=== PATIENT | female | born 1995 | race Two or more races ===

== ENCOUNTER 2024-11-15 16:44 | Emergency (ER) | payer MEDICAID, SELFPAY ==
[2024-11-15 17:04] VITALS: BP 128/82; PULSE 77; RESP 18; TEMP 37.2; O2SAT 99; BMI 38.2
--- NOTE | 2024-11-15 17:09 | PD.EDRME ---
Rapid Medical Screening Exam E Arrival date/time: 11/15/24 16:44 29-year-old female with no known medical history presents to the emergency room with a chief complaint of left pelvic pain x 1 day. Patient is a . She is currently 15 weeks I have greeted and performed a focused initial assessment of this patient. A comprehensive ED assessment and evaluation of the patient, analysis of all test results, and completion of the medical decision making process will be conducted by additional ED providers. Chief Complaint: Abdominal Pain Vital signs: Vital Signs Temperature 99 F 11/15/24 17:04 Pulse Rate 77 11/15/24 17:04 Respiratory Rate 18 11/15/24 17:04 Blood Pressure 128/82 11/15/24 17:04 Pulse Oximetry (%) 99 11/15/24 17:04 Oxygen Delivery Method Room Air 11/15/24 17:04 Vital signs reviewed by provider: Yes
--- NOTE | 2024-11-15 17:10 | XR_ITS ---
Examination: Complete OB ultrasound greater than 14 weeks Date and time of exam: November 15, 2024 at 1758 hrs. Indications: History of mass in the placenta, onset pelvic pain today Findings: Viable intrauterine single fetus with single amniotic sac presentation variable Cardiac motion 155 BPM Placenta posterior mass in the placenta 7.8 x 6.3 x 8.2 cm placenta grade 2 Umbilical cord insertion seen Amniotic fluid index 4.1 cm Cervix 4.6 cm Ovaries obscured by bowel gas. Composite estimated gestational age based on BPD, head circumference, abdominal circumference, femur length is 15 weeks 5 days Estimated weight 121.9 g. Survey of intracranial anatomy, spinal anatomy, abdominal anatomy, four-chamber heart performed with no abnormalities identified. Impression: Viable intrauterine gestation 15 weeks 5 days Large mass in the placenta, 7.8 x 6.3 x 8.2 cm unclear etiology Recommend short-term follow-up.
[2024-11-15 18:00] LABS: Basophils % (Auto) 0 % (0-2.5); Eosinophils # (Auto) 0.1 Thou/mm3 (0.0-0.5); Eosinophils % (Auto) 2 % (0-10); Hematocrit 31.5 % (36.0-46.0); Immature Granulocytes % (Auto) 0 % (0-0); Immature Granulocytes Auto 0.02 Thou/mm3 (0.00-0.00); Lymphocytes # (Auto) 2.1 Thou/mm3 (1.0-4.8); Lymphocytes % (Auto) 31 % (10-50); Mean Corpuscular HGB Conc 34.9 g/dl (31.0-37.0); Mean Corpuscular Hemoglobin 29.2 pg (25.0-35.0); Mean Corpuscular Volume 84 fL (80-100); Monocytes # (Auto) 0.4 Thou/mm3 (0.0-0.8); Monocytes % (Auto) 6 % (0-12); Neutrophils # (Auto) 4.1 Thou/mm3 (1.8-7.7); Neutrophils % (Auto) 61 % (37-80); Nucleated Red Blood Cell % 0 /100 WBC (0); Platelet Count 273 Thou/mm3 (140-440); RDW Standard Deviation 39.3 fL (36.4-46.3); Red Blood Count 3.77 Miln/mm3 (4.00-5.20); White Blood Count 6.8 Thou/mm3 (3.6-11.0)
[2024-11-15 18:27] LABS: Alanine Aminotransferase 17 U/L (10-49); Albumin, Serum 4.5 gm/dL (3.5-5.0); Albumin/Globulin Ratio 1.9 (1.2-2.2); Alkaline Phosphatase 75 U/L (46-116); Anion Gap 11 (7-16); Aspartate Amino Transferase 13 U/L (0-34); BUN/Creatinine Ratio 8 Ratio (12-20); Bilirubin,Total 0.3 mg/dL (0.3-1.2); Blood Urea Nitrogen 5 mg/dL (9-23); Calcium 9.5 mg/dL (8.3-10.6); Calcium (Corrected) 9.5 mg/dL (8.5-10.1); Carbon Dioxide 22.3 mMol/L (20.0-31.0); Chloride 104 mMol/L (98-107); Creatinine (Component) 0.6 mg/dL (0.6-1.3); Estimated Creatinine Clearance 168.5 mL/min (>60); Globulin 2.4 gm/dL (2.3-3.5); Glucose 86 mg/dL (74-106); Osmolality,Calculated 270 (275-295); Potassium 3.7 mMol/L (3.4-5.1); Sodium 137 mMol/L (136-145); Total Protein 6.9 gm/dL (5.7-8.2); eGFR > 60 See Note
[2024-11-15 19:20] LABS: Beta HCG,Quantitative 24841 mIU/mL (<5.0)
[2024-11-15 19:24] LABS: Collection Type, Urine Clean Catch
[2024-11-15 19:35] VITALS: BP 122/79; PULSE 73; RESP 18; O2SAT 100
[2024-11-15 19:56] LABS: Bacteria,Urine Rare; Bilirubin,Urine Negative (Negative); Blood,Urine Negative (Negative); Clarity,Urine Clear (Clear/Hazy); Color,Urine Lt-Yellow (Lt Yel-Yel); Glucose, Urine Negative (Negative); Ketones,Urine 2+ (Negative); Leukocyte Esterase,Urine Negative (Negative); Nitrite,Urine Negative (Negative); Protein,Urine Negative (Neg - Trace); RBC,Urine 2 /hpf (0-3); Squamous Epithelial Cell,Urine 2 /hpf (0-5); Urobilinogen,Urine Negative mg/dL (0.0-1.0); WBC,Urine 1 /hpf (0-5)
[2024-11-15 20:33] VITALS: BP 132/77; PULSE 81; RESP 17; TEMP 36.8; O2SAT 100
--- NOTE | 2024-11-15 20:42 | PD.EDABDPN ---
ED Abdominal Pain RME/HPI General Chief Complaint: Abdominal Pain Stated complaint: 15 weeks OB, abdominal pain Time seen by provider: 11/15/24 20:32 Arrival date/time: 11/15/24 16:44 This is a 29-year-old female here with complaints of lower abdominal pain. She does report she is approximately 15 weeks of gestation. No complaints of cramps, no vaginal bleeding. She does report she has a history of a mass on her placenta. She does state that she had an ultrasound at her doctor's office explaining that she had a mass. Patient is worried and requesting a repeat ultrasound. Denies dysuria, hematuria. Source: patient Limitations: no limitations RME / HPI RME / HPI narrative: 11/15/24 16:44 29-year-old female with no known medical history presents to the emergency room with a chief complaint of left pelvic pain x 1 day. Patient is a . She is currently 15 weeks I have greeted and performed a focused initial assessment of this patient. A comprehensive ED assessment and evaluation of the patient, analysis of all test results, and completion of the medical decision making process will be conducted by additional ED providers. Related Data Allergies Allergy/AdvReac Type Severity Reaction Status Date / Time No Known Allergies Allergy Verified 11/15/24 16:49 Review of Systems Review of Systems Systems Reviewed: All systems reviewed, normal except as documented Narrative Review of Systems: Gen: No fever, no chills, no weight loss EYES: No discharge, no visual changes, no pain HEENT: No ear pain, no congestion, no sore throat PULM: No shortness of breath, no cough, no congestion CV: No chest pain, no dyspnea on exertion, no palpitations GI: No nausea, no vomiting, no diarrhea, no pain, no constipation : No frequency, no urgency, no dysuria Musc/skel: No joint pain, no back pain Skin: No rash Psyc: No hallucinations, no depression Heme/Lymph: No easy bleeding or bruising tendencies Neuro: No weakness, no headache ED Exam General Limitations: Present no limitations General appearance: Present alert and in no apparent distress Head Head exam: Present atraumatic Eye Eye exam: Present normal appearance, PERRL and EOMI ENT ENT exam: Present normal exam, normal oropharynx and mucous membranes moist Neck Neck exam: Present normal inspection, full ROM and trachea midline Chest Chest inspection: Present normal inspection and symmetric chest wall rise Respiratory Respiratory exam: Present normal lung sounds bilaterally Cardiovascular Cardiovascular exam: Present regular rate, normal rhythm and normal heart sounds Abdominal Exam Abdominal exam: Present soft and normal bowel sounds Extremities Exam Extremities exam: Present normal inspection and full ROM Back Exam Back exam: Present normal inspection and full ROM Neurological Exam Neurological exam: Present alert, oriented X3 and CN II-XII intact Psychiatric Psychiatric exam: Present normal affect and normal mood Skin Skin exam: Present warm, dry, intact and normal color Course Quality Measures none Orders Category Date Time Status US OB >= 14 weeks Fetus Stat Exams 11/15/24 17:10 Completed ABO/RH Type Stat Lab 11/15/24 17:22 Completed Beta HCG,Quantitative Stat Lab 11/15/24 17:22 Completed CBC Stat Lab 11/15/24 17:22 Completed CMP [Comprehensive Metabolic Panel] Stat Lab 11/15/24 17:22 Completed UA [Urinalysis] Stat Lab 11/15/24 19:09 Completed Acetaminophen Tab [Tylenol ES Tab] Med 11/15/24 20:48 Discontinued 1,000 mg PO X1 ONE Vital Signs Vital signs: Vital Signs Temperature 99 F 11/15/24 17:04 Pulse Rate 77 11/15/24 17:04 Respiratory Rate 18 11/15/24 17:04 Blood Pressure 128/82 11/15/24 17:04 Pulse Oximetry (%) 99 11/15/24 17:04 Oxygen Delivery Method Room Air 11/15/24 17:04 Abdominal Pain MDM MDM Narrative MDM Narrative:: Strictly advised patient to follow-up with her [employer] [facility]. Patient is aware she has a mass in her uterus. A copy of her ultrasound was handed to the patient. Strict ER precautions given. Patient data External records reviewed:: [facility] previous records Clinical information provided by:: patient Social determinants that could affect healthcare access:: none Patient has the following chronic illnesses:: No How is presenting disease/condition affected by chronic disease/condition?: no chronic disease Evaluation data The following diagnostics were reviewed and interpreted by me:: lab results and radiology exam(s) Lab and/or radiology exams considered but not ordered:: no Interpretation Summary: xamination: Complete OB ultrasound greater than 14 weeks Date and time of exam: November 15, 2024 at 1758 hrs. Indications: History of mass in the placenta, onset pelvic pain today Findings: Viable intrauterine single fetus with single amniotic sac presentation variable Cardiac motion 155 BPM Placenta posterior mass in the placenta 7.8 x 6.3 x 8.2 cm placenta grade 2 Umbilical cord insertion seen Amniotic fluid index 4.1 cm Cervix 4.6 cm Ovaries obscured by bowel gas. Composite estimated gestational age based on BPD, head circumference, abdominal circumference, femur length is 15 weeks 5 days Estimated weight 121.9 g. Survey of intracranial anatomy, spinal anatomy, abdominal anatomy, four-chamber heart performed with no abnormalities identified. Impression: Viable intrauterine gestation 15 weeks 5 days Large mass in the placenta, 7.8 x 6.3 x 8.2 cm unclear etiology Recommend short-term follow-up. Medications / Prescriptions Medications or Prescriptions considered but not ordered:: no Medication administrations:: Medication Administration History Discontinued Medications Acetaminophen (Acetaminophen 500 Mg Tablet) 1,000 mg PO X1 ONE Stop: 11/15/24 20:49 Last Admin: 11/15/24 21:15 Dose: 1,000 mg Documented By: RAISA no Consultations Consultation(s) initiated? (list below): No Diagnosis Differential diagnosis abdominal pain: abdominal pain, constipation, pancreatitis and small bowel obstruction Most likely diagnosis given after review of the tests above:: Round ligament pain. Admission Indicated Admission indicated?: not indicated Admission Request Was there a request for admission?: No Disposition Plan Disposition Plan: Discharge Discharge Attestation Discharge Attestation: The patient and all family members were given an opportunity to ask questions and understood the discharge instructions. Discharge instructions specifically effects, indications for sooner follow up or return to the emergency department, and the expected course of current diagnosis. Patient condition: Stable Discharge Plan Plan Patient Disposition: HOME (Self Care) Patient condition on transfer: Stable Prescriptions/Referrals Referrals: No Primary/Family,Physician [Primary Care Provider] - In 1 week Problem List Clinical Impression: Pain of round ligament, Mass of uterus, Patient/Caregiver Discharge Instructions Discharge Activity: activity as tolerated Education Materials: Preg 2nd Trimester, ED Pelvic Pain Preg UKO 2 or 3 Tri Additional Instructions: - As discussed your pain might be related to expanding of your abdomen due to your . You were aware that you have a mass in your placenta. You should have close follow-up with your [employer] [facility] in this issue. Can take edip-ghb-awklznu Tylenol for pain. Return to the emergency department if there is any worsening symptoms and condition. Print Language: Albanian Stand Alone Forms: Lorenza Award Info., Work/School Release, Patient Portal Info Letter PA/OPERATOR RECEPTIONIST Supervising Physician PA/OPERATOR RECEPTIONIST Supervising Physician: Dr. Houser
[2024-11-15] MEDS: ACETAMINOPHEN 500 MG TABLET 1000 MG PO (21:15)
== END 2024-11-15 21:19 | disposition home or self-care (01) ==
PROVIDERS: Nurse Practitioner Family; Emergency Provider Emergency Medicine
DX: O99.891 Other specified diseases and conditions complicating pregnancy (principal); N85.8 Other specified noninflammatory disorders of uterus; Z3A.15 15 weeks gestation of pregnancy
CPT/HCPCS: 36415; 76805; 80053; 81001; 84702; 85025; 86900; 86901; 99284; A9270

== ENCOUNTER 2025-03-05 10:23 | Outpatient (AMB) | payer MEDICAID, SELFPAY ==
[2025-03-05 10:47] VITALS: BP 114/78; PULSE 80; RESP 17; TEMP 36.6; O2SAT 97; BMI 39.8
--- NOTE | 2025-03-05 10:47 | AMB.OBINITIA ---
Vital Signs 03/05/25 10:47 Height 1.63 m Height Method Stated Weight 105.233 kg Weight Measurement Method Standing Scale BMI 39.8 BP 114/78 Blood Pressure Source Automatic Cuff Blood Pressure Location Right Upper Arm Position Sitting Respiration 17 Pulse 80 Pulse Source Monitor Temp 97.8 F Temp Source Temporal Artery Scan Pulse Oximetry (%) 97 Oxygen Delivery Method Room Air Allergies/Home Meds Allergies & Medications Allergies No Known Allergies Allergy (Verified 03/05/25 10:47) Medication Reconciliation No Known Home Medications 03/05/25 [History Confirmed 03/05/25] Intake Visit Data Collection New Patient or Established: Established Patient (seen at [facility] within 3 years) Reason for Visit:: CELESTINA TRANSFER Seen by Clinical Staff ONLY (RN/MA): No Triage Licensed Practical Nurse Required: No Do You Feel Safe at Home: Yes Authorities Contacted: N/A PCP or OBGYN visit in last 3 months: No Hx Now: Yes Pain Present Currently: No Pain Scale Used: Gifford-Davis/Numerical Pain scale:: 0 Smoking Status Smoking Status: Never smoker Questionnaires Covid-19 Vaccine Questionnaire Has patient been vacinated for Covid-19 Have you been vacinated for Covid-19: No PHQ-9 PHQ-2 Over the last 2 weeks, how often have you been bothered by any of the following problems? 1. Little interest or pleasure in doing things: not at all 2. Feeling down, depressed, or hopeless: not at all Total score: 0 PHQ-9 3. Trouble falling or staying asleep, or sleeping too much: Not at all 4. Feeling tired or having little energy: Not at all 5. Poor appetite or overeating: Not at all 6. Feeling bad about yourself - or that you are a failure or have let yourself or your family down: Not at all 7. Trouble concentrating on things, such as reading the newspaper or watching television: Not at all 8. Moving or speaking so slowly that other people could have noticed? - Or the opposite - being so fidgety or restless that you have been moving around a lot more than usual: not at all 9. Thoughts that you would be better off or of hurting yourself in some way: Not at all Total score: 0 If you checked off any problems, how difficult have these problems made it for you to do your work, take care of things at home, or get along with other people?: not difficult at all Source: Developed by Drs. Alex Oliver, Yeni Simmons, Nicolás Medina and colleagues, with an educational benjamin from [employer]. Depression screen completed yes Social History Living Situation History Marital Status: Lives With: Spouse Housing: House Tobacco History Smoking Status: Never smoker Second Hand Smoke Exposure: No Alcohol History Alcohol Intake: Never Domestic Abuse History Do You Feel Safe at Home: Yes History of Present Illness HPI Narrative 29-year-old 1 para [address] Andres's office with records. Patient's been following Dr. Andres and she was first trimester . Her last period was August 01, 2024. Estimated due date by LMP and sono May 15, 2025. is significant for a 7 cm fibroid. Patient has a follow-up with maternal- medicine appointment April 11. She denies social habits. Denies surgery. Denies chronic illness. Patient thinks patient has no complaints of labor. No bleeding no leaking. Baby is active. Takes she is A+, antibody screen negative, RPR was nonreactive. Her hemoglobin A1c was 5.8. She is rubella immune. GC and Chlamydia were negative. And her drug screen was negative. Her NIPT AFP and carrier screens negative. And patient's HIV is negative. Hep B is negative and HIV is negative. OB Initial Visit OB Flowsheet OB Flowsheet Initial Weight: Not Recorded Date <del>?</del> EGA Weight BP Alb Glu CTX Pres Fundal ht FHR Mov Dilation Station Effacement Hx Notes Visit Note 03/05/25 <del>?</del> 30w 6d 105.233 kg 114/78 absent cephalic 32 145 active [address] Rodríguez, fetus active, no PTL complaints,no ROM,no Bledding. taking PNV and iron review lab, discuss PTL precaution, fkc bid reviewed, continue PNV and IRON, f/u MFM 04/18 rtc 2 week OBC Menstrual History Menstrual reliability: definite Flow: normal Menstrual regularity: regular Monthly: Yes Age at menarche: 10 On control pills at conception: No OB History : 1 Para: 0 Hx # Pregnancies: 0 Hx Total # of Abortions (Spontaneous & Elective): 0 # of Living Children: 0 Infection History & Risk Evaluation History of STDs: none HIV risk evaluation: low risk Hepatitis B risk evaluation: low risk Patient or partner has history of Genital Herpes: No Varicella/chicken pox status: immunized Genetic Screening & History Genetic Screening/Teratology Counseling - Includes patient, baby's father, or anyone in either family with: 1. Patient's age 35 years or older as of estimated date of delivery: No 2. Thalassemia (Upper Sorbian, Belizean, Mediterranean, or Background); MCV less than 80: No 3. Neural Tube Defect (Meningomyelocele, Spina Bifida, or Anencephaly): No 4. Congenital Heart Defect: No 5. Down Syndrome: No 6. Dax-Sachs (Ashkenazi Mu-Ism, Cajun, Cymraes [place]): No 7. Wallace Disease (Ashkenazi Mu-Ism): No 8. Familial Dysautonomia (Ashkenazi Mu-Ism): No 9. Sickle Cell Disease or Trait (): No 10. Hemophilia or other blood disorders: No 11. Muscular Dystrophy: No 12. Cystic Fibrosis: No 13. Coulters's Chorea: No 14. Mental Retardation/Autism: No 15. Other inherited genetic or chromosomal disorder: No 16. Maternal Metabolic Disorder (EG,TYPE 1 Diabetes, PKU): No 17. Patient or baby's father had a child with defects not listed above: No 18. Recurrent loss or a stillbirth: No 19. Medications (including supplements, vitamins, herbs or otc drugs)/illicit/recreational drugs/alcohol since last menstrual period: No 20. Any other: No Infection History 1. Live with someone with TB or exposed to TB: No 2. Rash or viral illness since last menstrual period: No 3. Hepatitis B,C: No Other (see comments) Source: [employer] [place] [employer] Review of Systems Review of Systems Systems Reviewed: All systems reviewed, normal except as documented Exam General Limitations: no limitations General Appearance: alert, in no apparent distress, comfortable, cooperative, healthy appearing, well developed and well groomed Head Head exam: atraumatic, normocephalic and normal inspection Resp Respiratory exam: Present normal lung sounds bilaterally Card Cardiovascular exam: Present regular rate, normal rhythm and normal heart sounds Abdominal Abdominal exam: Present soft and normal bowel sounds Psych Psychiatric exam: Present normal affect and normal mood Office Procedures OB Clinic LOC & Office Proc's Nursing/Assessment Patient Status: Established Patient OB Clinic Nursing Assessment: Medication Reconciliation, Update PMH in EMR and Vital Signs OB Clinic Coordination of Care: Complex Care and Chronic Disease 1-5, Consent,records obtained, informed consent, Education Simp Pt/Fam and Staff clarify orders Special Needs: Heart tones Established Patient Charge Established Patient Point Assignment: 115 Established Patient Point Charge: EP Level 3 (80-115) Assessment & Plan Diagnosis / Problem List (1) Encounter for supervision of high-risk with history of infertility in third trimester: Status: Acute Plan review records, discuss PTL precaution. fkc BID.discuss TDAP, Hydrate, f/u MFM 04/18/25, rtc 2 week obc Additional Plan Follow Up: 2 Weeks (obc)
== END 2025-03-05 11:17 | disposition home or self-care (01) ==
PROVIDERS: Supervising Provider Advanced Practice Midwife; Visit Provider Advanced Practice Midwife
DX: O09.03 Supervision of pregnancy with history of infertility, third trimester (principal); Z3A.30 30 weeks gestation of pregnancy; O34.13 Maternal care for benign tumor of corpus uteri, third trimester; D25.9 Leiomyoma of uterus, unspecified
CPT/HCPCS: 99213; G0463

== ENCOUNTER 2025-03-26 10:24 | Outpatient (AMB) | payer MEDICAID, SELFPAY ==
[2025-03-26 10:42] VITALS: BP 121/82; PULSE 67; RESP 17; TEMP 36.8; O2SAT 96; BMI 40.6
--- NOTE | 2025-03-26 10:42 | AMB.OBVISIT ---
Vital Signs 03/26/25 10:42 Height 1.63 m Height Method Measured Weight 107.955 kg Weight Measurement Method Standing Scale BMI 40.6 BP 121/82 Blood Pressure Source Automatic Cuff Blood Pressure Location Right Upper Arm Position Sitting Respiration 17 Pulse 67 Pulse Source Monitor Temp 98.2 F Temp Source Temporal Artery Scan Pulse Oximetry (%) 96 Oxygen Delivery Method Room Air Allergies/Home Meds Allergies & Medications Allergies No Known Allergies Allergy (Verified 03/26/25 10:43) Medication Reconciliation No Known Home Medications 03/05/25 [History Confirmed 03/26/25] Intake Visit Data Collection New Patient or Established: Established Patient (seen at [facility] within 3 years) Reason for Visit:: OBC Consent obtained for Telemed Visit: No Seen by Clinical Staff ONLY (RN/MA): No [employer] Required: No Do You Feel Safe at Home: Yes Authorities Contacted: N/A PCP or OBGYN visit in last 3 months: Yes Date of Last PCP or OBGYN visit: 03/05/25 Hx Now: Yes Are you currently on any form of Control: No Pain Present Currently: Yes Pain Location: Abdomen Pain scale:: 3 Smoking Status Smoking Status: Never smoker Questionnaires Covid-19 Vaccine Questionnaire Has patient been vacinated for Covid-19 Have you been vacinated for Covid-19: No PHQ-9 PHQ-2 Over the last 2 weeks, how often have you been bothered by any of the following problems? 1. Little interest or pleasure in doing things: not at all PHQ-9 8. Moving or speaking so slowly that other people could have noticed? - Or the opposite - being so fidgety or restless that you have been moving around a lot more than usual: not at all Source: Developed by Drs. Alex Oliver, Yeni Simmons, Nicolás Medina and colleagues, with an educational benjamin from [employer]. Social History Living Situation History Lives With: Spouse Housing: House Tobacco History Smoking Status: Never smoker Second Hand Smoke Exposure: No Alcohol History Alcohol Intake: Never Domestic Abuse History Do You Feel Safe at Home: Yes Care OB Visit Log OB Flowsheet Initial Weight: Not Recorded Date <del>?</del> EGA Weight BP Alb Glu CTX Pres Fundal ht FHR Mov Dilation Station Effacement Hx Notes Visit Note 03/05/25 <del>?</del> 30w 6d 105.233 kg 114/78 absent cephalic 32 145 active [address] Rodríguez, fetus active, no PTL complaints,no ROM,no Bledding. taking PNV and iron review lab, discuss PTL precaution, fkc bid reviewed, continue PNV and IRON, f/u MFM 04/18 rtc 2 week OBC 03/26/25 <del>?</del> 33w 6d 107.955 kg 121/82 absent cephalic 33 143 absent pressure. no c/o UC,no leaking or bleeding. mfm 03/25: IUP 33w5, EFW: 79%,ROSSY wnl, vertex, 7 cm fibroid/extramural review sono, discuss diet,weight gain, walk 40 minute. discuss ptl precaution. FKC BID, TDAP, start week NST/BPP, GBS nv review sono, discuss diet,weight gain, walk 40 minute. discuss ptl precaution. FKC BID, TDAP, start week NST/BPP, GBS nv, stop asa at 36 week, IOL 39 - 39w6 TOYIN Calculator Estimated Delivery Date Method Current WG Current Estimate 05/08/25 LMP (Certain) 33w 6d Other Estimates 05/04/25 Ultrasound #1 34w 3d 05/08/25 Ultrasound #2 33w 6d Notes Visit Date: 03/26/25 Last Updated by: Michelle Del Rio CNM 3rd tri lab: , RPR:NR, GC/CT-, 1 hr gtt: 129. sono 03/25: iup 33w5, efw: 79%, ROSSY wnl, vertex. fibroid 7cm Visit Date: 03/05/25 Last Updated by: Michelle Del Rio CNM 29 yo . lmp 08/01/24. EDC 05/08/25. sono :10/29/24: 13.5; EDC 05/01/25. Uterine fibroid/7cm/fundal/post.A+,abs-, rpr;;nr, rub imm, hbsag-,hiv-,hc-, GC/CT-, 1 hr gtt wnl//298 Office Procedures OB Clinic LOC & Office Proc's Nursing/Assessment Patient Status: Established Patient OB Clinic Nursing Assessment: Medication Reconciliation, Update PMH in EMR and Vital Signs OB Clinic Coordination of Care: Complex Care and Chronic Disease 1-5, Education Complex Pt/Fam, Consent,records obtained, informed consent, Education Simp Pt/Fam, Results/Orders obtained and Staff clarify orders Special Needs: Heart tones Established Patient Charge Established Patient Point Assignment: 140 Established Patient Point Charge: EP Level 4 (120-155) Injection/Vaccine Admin Admin 1st Vaccine: Yes Immunizations diphth,pertus(acell),tetanus 2.5 Lf unit-8 mcg-5 Lf/0.5mL IM syringe Performing Provider: Michelle Del Rio CNM Performing Location: [facility] Administered by: Molly Lopez MA on 03/26/25 16:08 Dose Route Admin Location Dispensed Lot Number Expiration Date [facility] Paper [employer] Machine Operator 0.5 mL IM Right Deltoid 0.5 mL [id number] 05/13/27 37661-071-93 [employer] VIS Given Date VIS Provided VIS Publication Date 03/26/25 Single Vaccine 24 Eligibility Eligibility Date Funding Source Public Non-[facility] Assessment & Plan Diagnosis / Problem List (1) Encounter for supervision of high risk in third trimester, antepartum: Status: Acute (2) Obesity affecting , antepartum: Status: Acute Qualifiers: Obesity type affecting : unspecified obesity Qualified Code(s): O99.210 - Obesity complicating , unspecified trimester Plan schedule week NST/BPP, discuss fkc bid, TDAP today, GBS NV. reviewed sono and labs. discuss diet and weight loss. walk 40 minute. discuss ptl precaution Additional Plan Follow Up: 2 Weeks (obc)
== END 2025-03-26 11:12 | disposition home or self-care (01) ==
LOC: HODSOBC 10:24
PROVIDERS: Supervising Provider Advanced Practice Midwife; Visit Provider Advanced Practice Midwife
DX: O09.893 Supervision of other high risk pregnancies, third trimester (principal); Z3A.33 33 weeks gestation of pregnancy; O99.213 Obesity complicating pregnancy, third trimester; O34.13 Maternal care for benign tumor of corpus uteri, third trimester; D25.9 Leiomyoma of uterus, unspecified; Z23 Encounter for immunization
CPT/HCPCS: 90471; 90715; 99214; G0463

== ENCOUNTER 2025-04-05 06:35 | Inpatient (IN) | payer MEDICAID, SELFPAY ==
[2025-04-05] VITALS (95 sets, daily range): BP systolic 120–184; BP diastolic 64–131; PULSE 55–98; RESP 14–98; TEMP 36.6–36.8; O2SAT 91–100; BMI 43.2
[2025-04-05 07:21] LABS: ROM Kit Exp Date# 11/15/2027; ROM Kit Lot # 58102387; Rupture of Fetal Membranes Positive (Negative); Swb Mxed in Solvent 1 min? Yes
[2025-04-05 07:22] LABS: ROM Swab Mixed By: RN
--- NOTE | 2025-04-05 07:42 | XR_ITS ---
Examination: age Limited Technique: Limited transabdominal sonographic images pelvis Indications: Pelvic contractions today, unknown presentation. Date and time: April 05, 2025, 0847 hrs. Findings: Viable intrauterine gestation cephalic presentation spine anterior. Cardiac motion 138 BPM Impression: Viable intrauterine gestation cephalic presentation
[2025-04-05 08:50] LABS: Basophils # (Auto) 0.0 Thou/mm3 (0.0-0.2); Basophils % (Auto) 0 % (0-2.5); Eosinophils # (Auto) 0.1 Thou/mm3 (0.0-0.5); Eosinophils % (Auto) 1 % (0-10); Hematocrit 29.4 % (36.0-46.0); Hemoglobin 10.1 g/dL (12.0-16.0); Immature Granulocytes Auto 0.02 Thou/mm3 (0.00-0.00); Lymphocytes # (Auto) 1.9 Thou/mm3 (1.0-4.8); Lymphocytes % (Auto) 34 % (10-50); Mean Corpuscular HGB Conc 34.4 g/dl (31.0-37.0); Mean Corpuscular Hemoglobin 28.4 pg (25.0-35.0); Mean Corpuscular Volume 83 fL (80-100); Monocytes # (Auto) 0.3 Thou/mm3 (0.0-0.8); Monocytes % (Auto) 5 % (0-12); Neutrophils # (Auto) 3.4 Thou/mm3 (1.8-7.7); Neutrophils % (Auto) 59 % (37-80); Nucleated Red Blood Cell # 0.00 Thou/mm3 (0.00-0.00); Nucleated Red Blood Cell % 0 /100 WBC (0); Platelet Count 238 Thou/mm3 (140-440); RDW Standard Deviation 41.5 fL (36.4-46.3); Red Blood Count 3.56 Miln/mm3 (4.00-5.20); White Blood Count 5.7 Thou/mm3 (3.6-11.0)
[2025-04-05 09:29] LABS: Syphilis Nonreactive (Nonreactive)
[2025-04-05] MEDS: RINGERS LACTATED 1000 ML 1,000 ML 100 ML IV (10:03)
[2025-04-05] MEDS: Ampicillin Inj 2,000 MG in SODIUM CHLORIDE 0.9% (POP) 100 ML 100 MG IV (10:04)
[2025-04-05] MEDS: BETAMET ACET/BETAMET NA PH (Celestone) 6 MG/ML VIAL 12 MG IM (10:04)
--- NOTE | 2025-04-05 10:38 | PD.LDHP ---
Documentation for date of: 04/05/25 OB Labor/Induct. HPI History of Present Illness : 1 Para: 0 Term pregnancies: 0 pregnancies: 0 Living children: 0 History of Abortions: Spontaneous and Elective: 0 History of Vaginal deliveries: 0 History of sections: No History of : No TOYIN: 05/08/25 Gestational Age (weeks): 35 Gestational Age (days): 2 History of present illness: Patient presents for loss of fluid, clear, that occurred at 2145 last night. No regular/painful ctx. No vaginal bleeding. Normal movement. No fevers/chills. History of Present Dating criteria: LMP confirmed by 1st trimester US Adequate Care: Yes Ultrasounds: normal 1st trimester US and normal mid trimester US Obstetrical complications: other (anemia, obesity (current BMI 43.2), 7cm posterior uterine fibroid) Labs Maternal Blood Type: A Pos Labs: Positive: Rubella Titre, Negative: RPR, Hepatitis B, HIV, Chlamydia and Gonorrhea and Unknown: Group Beta Strep Narrative: HgbA1c 5.8. 1hr glucola 129. Review of Systems Review of Systems Narrative Review of Systems: Review of Systems Systems Reviewed: All systems reviewed, normal except as documented Constitutional Constitutional: Denies body ache(s), Denies chills, Denies fever(s) and Denies headache(s) ENT Ears, Nose, Mouth, and Throat: Denies headache(s) and Denies vertigo Cardiovascular Cardiovascular: Denies chest pain, Denies palpitations, Denies dyspnea and Denies syncope Respiratory Respiratory: Denies cough, Denies dyspnea Gastrointestinal Gastrointestinal: Denies nausea and Denies vomiting Neurologic Neurologic: Denies convulsions, Denies headache(s), Denies other visual disturbances, Denies syncope and Denies vertigo Past Medical History Family History OTHER FAMILY HX: non-contributory Surgical History SURGICAL: Negative Section OTHER SURGICAL HX: denies Social History SOCIAL: No tobacco/ETOH/illicit drug use Past Medical History Comments PMH COMMENT: Current BMI 43.2 Meds Home Medications and Allergies Home Medications ?Medication ?Instructions ?Recorded ?Confirmed ?Type aspirin 81 mg tablet,delayed 81 mg PO .q day 04/05/25 04/05/25 History release Held on 04/05/25. Instructions: Order Change ferrous sulfate 325 mg (65 mg 325 mg PO .q day 04/05/25 04/05/25 History iron) tablet (FeroSul) vits no.130-ferrous fum 1 tab PO .q day 04/05/25 04/05/25 History 27 mg iron-folic acid 800 mcg tablet ( Vitamin) Allergies Allergy/AdvReac Type Severity Reaction Status Date / Time No Known Allergies Allergy Verified 04/05/25 07:05 OB Exam Physical Exam Vital signs: Temp Pulse Resp BP Pulse Ox O2 Del Method 98.2 F 69 18 122/75 100 Room Air 04/05/25 06:55 04/05/25 10:24 04/05/25 06:55 04/05/25 10:24 04/05/25 06:55 04/05/25 06:55 Narrative: General: well developed, well nourished, no acute distress, conversant Cardiac: normal heart rate Lungs: breathing without distress Abdomen: soft, gravid, non-tender, no rebound or guarding Extremities: no pain with palpation of calves Detailed Labor and Delivery Exam Dilation (cm): 0 Effacement (%): 0 Cervix position: posterior station: -3 Consistency: firm Presentation: Vertex (by ultrasound) Membranes: ruptured ( 2144 on 04/04) Amniotic fluid: clear Baseline heart rate: 130 monitor accelerations: 15x15 monitor decelerations: None joint terminal attack controller variability: Moderate (11-25) Contraction frequency (min): occasional OB Results Labs 04/05/25 08:00 Labs: Short CBC 04/05/25 Range/Units 08:00 WBC 5.7 (3.6-11.0) Thou/mm3 Hgb 10.1 L (12.0-16.0) g/dL Hct 29.4 L (36.0-46.0) % Plt Count 238 (140-440) Thou/mm3 Impressions Impression: Examination: age Limited Technique: Limited transabdominal sonographic images pelvis Indications: Pelvic contractions today, unknown presentation. Date and time: April 05, 2025, 0847 hrs. Findings: Viable intrauterine gestation cephalic presentation spine anterior. Cardiac motion 138 BPM Impression: Viable intrauterine gestation cephalic presentation OB Assessment & Plan Assessment and Plan (1) premature rupture of membranes (PPROM) with unknown onset of labor: Status: Acute Assessment and plan: Lindsey is a 29yo with SIUP at 35&2wk with PPROM at 2145 last night, clear. Amnisure positive. Irregular ctx. SCE: fingertip/thick/high. Vitals wnl, benign exam. Reassuring assessment. Cephalic by ultrasound. PMhx/ complicated by: BMI 43.2 - prescribed ASA but didn't take it Anemia taking iron 7cm posterior uterine fibroid Transfer of care from Dr. Rodríguez to [facility] in 3rd trimester Plan: -Admit to L&D -Establish IV, routine labs -CEFM -Regular diet then [id number] -Furnace Roaster/consent re: -GBS status: unknown. Ampicillin per protocol. -Betamethasone 12mg IM x1 -Anticipate -Safe to proceed (2) Obesity affecting , antepartum: Status: Acute (3) Encounter for supervision of high-risk with history of infertility in third trimester: Status: Acute (2) Obesity affecting , antepartum Qualifiers: Obesity type affecting : unspecified obesity Qualified Code(s): O99.210 - Obesity complicating , unspecified trimester
[2025-04-05] MEDS: Ampicillin Inj 1,000 MG in SODIUM CHLORIDE 0.9% (Popper) 50 ML 50 MG IV ×3 (14:07→22:00)
[2025-04-05] MEDS: fentaNYL CIT INJ 50 mCg/ML AMP 2ML 100 MCG IVP ×3 (15:48→20:46)
--- NOTE | 2025-04-05 18:45 | PD.LDPN ---
Documentation for date of: 04/05/25 OB Labor Progress Note Pelvic Exam Dilation (cm): 3 Effacement (%): 70 station: -2 Amniotic membrane status: Ruptured Contractions Monitor mode: External Contraction frequency: 1-6 Contraction intensity: Strong Status status: Category l Assessment and Plan Comments: Intrpartum Note Lindsey is doing well overall. Received a dose of IV pain medication earlier with some relief. Only received the one dose of PO cytotec this morning and has been making change on her own. Interested in epidural at some point in labor. BP's mostly normal, but there were a couple severe (one was while patient was rolled onto bp cuff) and few mild range that self-resolved, afebrile Cat I FHRT overall Ctx q2-5min SCE /-2 Plan to continue to closely observe Re-check SCE q4hr, will augment prn CEFM Continue IV ampicillin Safe to proceed Mamie Clement MD
[2025-04-05] MEDS: LABETALOL INJ 5 MG/ML VIAL 20 ML 20 MG IVP (20:39)
[2025-04-05] MEDS: RINGERS LACTATED 1000 ML 1,000 ML 999 ML IV (20:47)
[2025-04-05 22:35] LABS: Alanine Aminotransferase 8 U/L (10-49); Albumin, Serum 3.9 gm/dL (3.5-5.0); Albumin/Globulin Ratio 1.9 (1.2-2.2); Alkaline Phosphatase 191 U/L (46-116); Anion Gap 12 (7-16); BUN/Creatinine Ratio 12 Ratio (12-20); Basophils # (Auto) 0.0 Thou/mm3 (0.0-0.2); Basophils % (Auto) 0 % (0-2.5); Bilirubin,Total 0.4 mg/dL (0.3-1.2); Blood Urea Nitrogen 7 mg/dL (9-23); Calcium 9.7 mg/dL (8.3-10.6); Calcium (Corrected) 9.8 mg/dL (8.5-10.1); Carbon Dioxide 18.2 mMol/L (20.0-31.0); Chloride 107 mMol/L (98-107); Creatinine (Component) 0.6 mg/dL (0.6-1.3); Eosinophils # (Auto) 0.0 Thou/mm3 (0.0-0.5); Eosinophils % (Auto) 0 % (0-10); Estimated Creatinine Clearance 162.4 mL/min (>60); Globulin 2.1 gm/dL (2.3-3.5); Glucose 109 mg/dL (74-106); Hematocrit 31.5 % (36.0-46.0); Hemoglobin 10.7 g/dL (12.0-16.0); Immature Granulocytes Auto 0.04 Thou/mm3 (0.00-0.00); Lymphocytes # (Auto) 1.5 Thou/mm3 (1.0-4.8); Lymphocytes % (Auto) 15 % (10-50); Mean Corpuscular HGB Conc 34.0 g/dl (31.0-37.0); Mean Corpuscular Hemoglobin 28.1 pg (25.0-35.0); Mean Corpuscular Volume 83 fL (80-100); Monocytes # (Auto) 0.2 Thou/mm3 (0.0-0.8); Monocytes % (Auto) 2 % (0-12); Neutrophils # (Auto) 7.8 Thou/mm3 (1.8-7.7); Neutrophils % (Auto) 82 % (37-80); Nucleated Red Blood Cell # 0.00 Thou/mm3 (0.00-0.00); Nucleated Red Blood Cell % 0 /100 WBC (0); Osmolality,Calculated 272 (275-295); Platelet Count 219 Thou/mm3 (140-440); Potassium 3.8 mMol/L (3.4-5.1); RDW Standard Deviation 40.5 fL (36.4-46.3); Red Blood Count 3.81 Miln/mm3 (4.00-5.20); Sodium 137 mMol/L (136-145); Total Protein 6.0 gm/dL (5.7-8.2); White Blood Count 9.6 Thou/mm3 (3.6-11.0); eGFR > 60 See Note
[2025-04-05 22:38] LABS: Amphetamine/Metham Scrn,Ur OB Negative (Negative); Benzoylecgonine Screen, Ur OB Negative (Negative); Opiate Screen,Urine OB Negative (Negative); THC Screen,Urine OB Negative (Negative)
[2025-04-05 22:49] LABS: Aspartate Amino Transferase < 8 U/L (0-34); Uric Acid 3.7 mg/dL (3.1-7.8)
[2025-04-05 22:52] LABS: INR 0.9 (0.9-1.3); Partial Thromboplastin Time 27.9 Seconds (22.0-36.0); Prothrombin Time 9.9 Seconds (9.0-12.2)
[2025-04-05 22:54] LABS: Fibrinogen 624 mg/dL (175-375)
[2025-04-05 23:31] LABS: Collection Type, Urine Clean Catch
[2025-04-05 23:37] LABS: Bilirubin,Urine Negative (Negative); Blood,Urine 1+ (Negative); Clarity,Urine Clear (Clear/Hazy); Color,Urine Lt-Yellow (Lt Yel-Yel); Glucose, Urine Negative (Negative); Ketones,Urine Negative (Negative); Leukocyte Esterase,Urine Negative (Negative); Nitrite,Urine Negative (Negative); PH,Urine 7.5 (5.0-7.0); Protein,Urine Negative (Neg - Trace); RBC,Urine 32 /hpf (0-3); Specific Gravity,Urine 1.017 (1.001-1.035); Squamous Epithelial Cell,Urine 1 /hpf (0-5); Urobilinogen,Urine Negative mg/dL (0.0-1.0); WBC,Urine 1 /hpf (0-5)
[2025-04-05] MEDS: OXYTOCIN in NS 30 units 30 UNIT/500 ML BAG IV (23:40)
[2025-04-05 23:45] LABS: Creatinine,Random Urine 72 mg/dL (30-125); Protein Total, Random Urine 28 mg/dL (1-14)
[2025-04-06] VITALS (130 sets, daily range): BP systolic 101–170; BP diastolic 51–81; PULSE 67–121; RESP 18; TEMP 36.4–36.9; O2SAT 86–100
[2025-04-06] MEDS: Ampicillin Inj 1,000 MG in SODIUM CHLORIDE 0.9% (Popper) 50 ML 50 MG IV (02:00)
[2025-04-06] MEDS: OXYTOCIN in NS 20 units 20 UNIT/1,000 ML BAG 125 UNIT IV (06:25)
--- NOTE | 2025-04-06 06:43 | OBDSUM_ITS ---
Data (Gautam) Data Hx Section: No : 1 Term: 0 : 0 Livin Abortions: Spontaneous & Theraputic: 0 Delivery Data (Gautam) Labor Data Initiation of labor: Augmentation Induction/Augmentation Agent: Cytotec-PO and Pitocin ROM date: 04/04/25 ROM time: 21:45 Amniotic membrane rupture type: Spontaneous Amniotic fluid description: Clear Delivery Data Onset of labor date: 04/05/25 Onset of labor time: 13:00 Complete dilation date: 04/06/25 Complete dilation time: 05:15 [place] delivery date: 04/06/25 [place] delivery time: 06:18 Placenta delivery date: 04/06/25 Placenta delivery time: 06:20 Stage 1 total time: Labor - Stage 1 Duration 16 hours and 15 minutes Delivered by: Mamie Clement Delivery nurse: Karis Rangel RN [place] nurse: SHAUNA Block Tobacco Warehouse Manager at delivery: No Support person(s) at delivery: FOB AT DELIVERY Delivery Method Delivery method: Normal Vaginal Delivery Presentation: Vertex Anesthesia Type Anesthesia Type: None Placenta Placenta delivery description: Spontaneous Cord blood sent to lab: Yes cord blood collection: Cord Blood Type Episiotomy Episiotomy description: None EBL Estimated blood loss (ml): 200 Umbilical Cord cord description: 3 Vessels Additional Procedures Lindsey is a 29yo [id number] s/p uncomplicated at 35&3wk after presenting with PPROM, delivering at 0618 on 04/06/2025. On presentation, SCE was ft/thick/high. She progressed with oral cytotec and then pitocin augmentation to C/C/0 at which point she began pushing. She received an epidural in labor. With good maternal pushing efforts, infant's head delivered OA and restituted THAIS. Left anterior shoulder delivered easily followed by posterior shoulder and corpus. Infant had spontaneous cry and was vigorous. Apgars 9/9. Infant placed on maternal abdomen where nose/mouth were suctioned and dried/stimulated. After approximately 2 minutes, cord was clamped x2 and cut by FOB. Cord blood collected for typing. With fundal massage and cord traction, placenta delivered spontaneously and intact with 3 vessel centrally inserted cord. Bimanual massage performed and IV pitocin given per protocol with fundus then firm at u-2cm and hemostasis noted. Inspection of perineum and vagina revealed a small/superficial francy-urethral laceration and a 2nd degree midline perineal laceration which were repaired in routine fashion with 3-0 vicryl- total reapproximation and hemostasis achieved. All counts correct x2. Mom and were doing well when I left the room. Mamie Clement MD Complications Complications: none [place] Data (Gautam) [place] Data order: 1 's gender: Male Identification band number: [id number] weight (gms): 2825 g Weight (pounds): 6 lbs and 3.6 ozs length: 45.72 cm 1 minute: 9 5 minutes: 9 10 minutes: 9
[2025-04-06] MEDS: IBUPROFEN TAB 400 MG TABLET 800 MG PO ×2 (06:55→17:58)
[2025-04-06] MEDS: BENZO/LANO/ALOE (Dermoplast) 60 GM CAN 1 SPRAY TOP (06:56)
[2025-04-06] MEDS: DOCUSATE SOD 100 MG CAPSULE PO ×2 (09:35→20:51)
[2025-04-06 12:56] LABS: Basophils # (Auto) 0.0 Thou/mm3 (0.0-0.2); Basophils % (Auto) 0 % (0-2.5); Eosinophils # (Auto) 0.0 Thou/mm3 (0.0-0.5); Eosinophils % (Auto) 0 % (0-10); Hematocrit 26.1 % (36.0-46.0); Hemoglobin 9.1 g/dL (12.0-16.0); Immature Granulocytes Auto 0.04 Thou/mm3 (0.00-0.00); Lymphocytes # (Auto) 1.8 Thou/mm3 (1.0-4.8); Lymphocytes % (Auto) 14 % (10-50); Mean Corpuscular HGB Conc 34.9 g/dl (31.0-37.0); Mean Corpuscular Hemoglobin 28.8 pg (25.0-35.0); Mean Corpuscular Volume 83 fL (80-100); Monocytes # (Auto) 0.8 Thou/mm3 (0.0-0.8); Monocytes % (Auto) 6 % (0-12); Neutrophils # (Auto) 10.1 Thou/mm3 (1.8-7.7); Neutrophils % (Auto) 80 % (37-80); Nucleated Red Blood Cell # 0.00 Thou/mm3 (0.00-0.00); Nucleated Red Blood Cell % 0 /100 WBC (0); Platelet Count 213 Thou/mm3 (140-440); RDW Standard Deviation 40.9 fL (36.4-46.3); Red Blood Count 3.16 Miln/mm3 (4.00-5.20); White Blood Count 12.7 Thou/mm3 (3.6-11.0)
[2025-04-07 04:20] VITALS: BP 129/79; PULSE 66; RESP 18; TEMP 36.7; O2SAT 98
[2025-04-07] MEDS: IBUPROFEN TAB 400 MG TABLET 800 MG PO (07:13)
[2025-04-07 07:15] VITALS: BP 145/80; PULSE 57; RESP 20; TEMP 36.6; O2SAT 98
--- NOTE | 2025-04-07 09:10 | ESPR_ITS ---
Subjective Subjective Interval history: Patient doing well overall. Minimal discomfort. She is ambulating no lightheadedness/dizziness. Voiding spontaneously, no issues. Tolerating regular diet without nausea/vomiting. Lochia tapering as expected. No fevers/chills, no CP/SOB. Visit done in NICU where she was holding her baby. Baby will be discharged tomorrow most likely. Exam Vital Signs Temp Pulse Resp BP Pulse Ox O2 Del Method 97.9 F 57 L 20 145/80 H 98 Room Air 04/07/25 07:15 04/07/25 07:15 04/07/25 07:15 04/07/25 07:15 04/07/25 07:15 04/07/25 07:15 Narrative Exam General: well developed, well nourished, no acute distress, conversant Cardiac: normal heart rate Lungs: breathing without distress Abdomen: soft, post-gravid, non-tender, no rebound or guarding, Fundus firm at u-3cm. Extremities: no pain with palpation of calves, trace edema of BLE Objective Labs 04/06/25 12:45 04/05/25 21:37 Labs: Laboratory Results - last 24 hr 04/06/25 12:45 WBC 12.7 H RBC 3.16 L Hgb 9.1 L Hct 26.1 L MCV 83 MCH 28.8 MCHC 34.9 RDW Std Deviation 40.9 Plt Count 213 Neut % (Auto) 80 Lymph % (Auto) 14 Humphreys % (Auto) 6 Eos % (Auto) 0 Baso % (Auto) 0 Neut # (Auto) 10.1 H Lymph # (Auto) 1.8 Humphreys # (Auto) 0.8 Eos # (Auto) 0.0 Baso # (Auto) 0.0 Immature Gran # (Auto) 0.04 H Absolute Nucleated RBC 0.00 Immature Gran % 0 Nucleated RBC % 0 Assessment & Plan Problem List (1) care and examination immediately after delivery: Status: Acute Assessment and plan: Lindsey is a 29yo [id number] s/p uncomplicated after presenting with PPROM at 35w2d, doing well on PPD 1. She developed pre-eclampsia withOUT severe features in labor with mild range bp's and urine p:c 0.38. Normotensive to mild range bp, benign exam. Hemodynamically stable with no evidence of infection. Appropriate change in H/H from 10.7 to 9.1. No s/sx of worsening pre-E. Plan: -Continue routine care -Regular diet -Encourage ambulation -Anticipate discharge home tomorrow (2) premature rupture of membranes (PPROM) with unknown onset of labor: Status: Acute (3) Obesity affecting , antepartum: Status: Acute (4) Encounter for supervision of high-risk with history of infertility in third trimester: Status: Acute Time Spent With Patient Time: Total time spent is greater than 50% in coordination of care (as documented) at patient's floor/unit and/or counseling patient:
[2025-04-07] MEDS: DOCUSATE SOD 100 MG CAPSULE PO ×2 (10:39→20:01)
[2025-04-07 10:40] VITALS: BP 139/86; PULSE 61; RESP 20; TEMP 36.7; O2SAT 96
[2025-04-07 15:30] VITALS: BP 133/83; PULSE 69; RESP 20; TEMP 36.7; O2SAT 98
[2025-04-07 19:43] VITALS: BP 127/79; PULSE 71; RESP 16; TEMP 36.7; O2SAT 98
[2025-04-08 03:38] VITALS: BP 138/89; PULSE 59; RESP 18; TEMP 36.8; O2SAT 98
[2025-04-08 08:00] VITALS: BP 128/78; PULSE 67; RESP 20; TEMP 36.8; O2SAT 98
[2025-04-08] MEDS: DOCUSATE SOD 100 MG CAPSULE PO (09:04)
--- NOTE | 2025-04-08 09:31 | PD.LDDS ---
DS: Providers Provider Date of admission: 04/05/25 07:38 Primary care physician: Physician No Primary/Family Admitting Provider: Carlos Hallman MD Attending Provider on Admission: Mamie Clement MD Consults: 04/06/25 06:41 Referral Routine Comment: Attending Provider on DC: Mamie Clement MD Discharging Provider: Mamie Clement MD DS: Diagnosis Discharge Diagnosis (1) care and examination immediately after delivery: Status: Acute (2) premature rupture of membranes (PPROM) with unknown onset of labor: Status: Acute (3) Obesity affecting , antepartum: Status: Acute (4) Pre-eclampsia, mild, delivered: Status: Acute Problem List Completed Was Problem List Reviewed/Reconciled?: Yes Summary/Hosp Course Brief History: Lindsey is a 29yo [id number] s/p uncomplicated after presenting with PPROM at 35w2d, doing well on PPD 2. She developed pre-eclampsia withOUT severe features in labor with mild range bp's and urine p:c 0.38. Normotensive since yesterday morning, benign exam. Appropriate change in H/H from 10.7 to 9.1. No s/sx of worsening pre-E. She is meeting all milestones and feels ready for discharge home. She is ambulating without lightheadedness, tolerating regular diet no n/v, spontaneously voiding without issue. She has no chest pain or shortness of breath. No fevers or chills. Minimal, appropriate discomfort. Peripartum Data Delivery Method: Normal Vaginal Delivery Episiotomy Description: None Status at Discharge Functional status at discharge: independent ambulation Overall status at discharge: patient is back to baseline Time Spent with Patient Time attestation: Total time spent providing and/or coordinating discharge services: Exam Vital Signs Temp Pulse Resp BP Pulse Ox O2 Del Method 98.3 F 67 20 128/78 98 Room Air 04/08/25 08:00 04/08/25 08:00 04/08/25 08:00 04/08/25 08:00 04/08/25 08:00 04/08/25 08:00 Narrative Exam General: well developed, well nourished, no acute distress, conversant Cardiac: normal heart rate Lungs: breathing without distress Abdomen: soft, post-gravid, non-tender, no rebound or guarding, Fundus firm at u-3cm. Extremities: no pain with palpation of calves, trace edema of BLE Discharge Plan Plan Patient Disposition: HOME (Self Care) Patient condition on transfer: Stable Prescriptions/Referrals Prescriptions/Med Rec: New docusate sodium 100 mg Capsule 100 mg PO BID 10 Days Qty: 20 0RF ibuprofen 800 mg tablet 800 mg PO Q8H PRN (Reason: See Comments) 10 Days Qty: 20 0RF Discontinued aspirin 81 mg tablet,delayed release (DR/EC) 81 mg PO .q day No Action ferrous sulfate [FeroSul] 325 mg (65 mg iron) tablet 325 mg PO .q day Vitamin 27 mg iron- 800 mcg tablet 1 tab PO .q day Referrals: No Primary/Family,Physician [Primary Care Provider] - Patient/Caregiver Discharge Instructions Discharge Activity: other Other Discharge Activity Instructions:: vaginal rest and no heavy lifting for 6 weeks Other Discharge Diet Instructions: regular diet Education Materials: After a Vaginal , Understanding Preeclampsia Print Language: Vietnamese Activity Restrictions/Additional Instructions: follow up with your OBGYN within 1 week for bp check, call clinic for appointment Stand Alone Forms: Lorenza Award Info., Patient Portal Info Letter Discharge Order Discharge Orders: Discharge (Routine); Ordered 04/08/25 Ordered By: Mamie Clement Planned Discharge Date 04/08/25 (3) Obesity affecting , antepartum Qualifiers: Obesity type affecting : unspecified obesity Qualified Code(s): O99.210 - Obesity complicating , unspecified trimester
[2025-04-08] MEDS: IBUPROFEN TAB 400 MG TABLET 800 MG PO (12:27)
== END 2025-04-08 12:55 | disposition home or self-care (01) | DRG 560 ==
LOC: S4SX 11:03 → S4NX 04-06 09:41
PROVIDERS: Admitting Provider Obstetrics & Gynecology; Visit Provider Obstetrics & Gynecology
DX: O42.013 Preterm premature rupture of membranes, onset of labor within 24 hours of rupture, third trimester (principal); O70.1 Second degree perineal laceration during delivery; O71.82 Other specified trauma to perineum and vulva; Z37.0 Single live birth; O99.214 Obesity complicating childbirth; Z3A.35 35 weeks gestation of pregnancy; O34.13 Maternal care for benign tumor of corpus uteri, third trimester; D25.9 Leiomyoma of uterus, unspecified; O14.04 Mild to moderate pre-eclampsia, complicating childbirth
CPT/HCPCS: 36415; 59025; 59409; 76815; 80053; 80307; 81001; 82570; 84112; 84156; 84550; 85025; 85384; 85610; 85730; 86780; 86850; 86900; 86901; 94762; J0290; J0702; J2590; J2795; J3010; J3490; J7050; J7120; A9270; J1920

== ENCOUNTER 2025-04-19 22:18 | Emergency (ER) | payer MEDICAID, SELFPAY ==
[2025-04-19 22:25] VITALS: BMI 39.6
[2025-04-19 22:36] VITALS: BP 108/61; PULSE 76; RESP 19; TEMP 37.4; O2SAT 97
--- NOTE | 2025-04-19 22:57 | EDNOTE_ITS ---
ED Abdominal Pain RME/HPI General Chief Complaint: Abdominal Pain Stated complaint: EPIGASTRIC Time seen by provider: 04/19/25 22:44 Arrival date/time: 04/19/25 22:18 RME / HPI RME / HPI narrative: 29-year-old female presents to the ED with a complaint of epigastric pain that began suddenly about 930 tonight, with associated nausea and diaphoresis. Patient states that approximately 9 PM she had ice cream and chocolate cake. Earlier this evening she had [employer] for dinner. She denies any fever or chills, vomiting, diarrhea or lower abdominal pain. She has previously had the same type of pain approximately 2 months ago during her . She states she had a history of preeclampsia with her and was told to watch out for those type of symptoms following her vaginal delivery which was 15 days ago. She is currently breast-feeding. Related Data Home Medications ?Medication ?Instructions ?Recorded ?Confirmed ferrous sulfate 325 mg (65 mg 325 mg PO .q day 5 04/05/25 iron) tablet (FeroSul) vits no.130-ferrous fum 1 tab PO .q day 04/0504/05/25 27 mg iron-folic acid 800 mcg tablet ( Vitamin) Allergies Allergy/AdvReac Type Severity Reaction Status Date / Time No Known Allergies Allergy Verified 04/19/25 22:30 Review of Systems Review of Systems Systems Reviewed: All systems reviewed, normal except as documented Past Medical History Past Medical History NEUROLOGIC: Negative Neurological Disorders CARDIAC: Negative Cardiac Disorders or Congestive Heart Failure RESPIRATORY: Negative Chronic Obstructive Pulmonary Disease (COPD) GASTROINTESTINAL: Negative Gastrointestinal Disorders GENITOURINARY: Negative Genitourinary Disorders or Renal Disease REPRODUCTIVE: Negative Pelvic Inflammatory Disease MUSCULOSKELETAL: Negative Musculoskeletal Disorders ENDOCRINE: Negative Endocrine Disorders, Diabetes Mellitus Type 1 or Diabetes Mellitus Type 2 HEMATOLOGIC: Negative Blood Disorders OTHER HISTORY: Negative Autoimmune Disease, Blood Transfusions, Blood Transfusion Reaction, Anesthesia Reactions, Organ Transplant, MRSA, Clostridium Difficile or Cancer Family History FAMILY HISTORY: Negative Family Cardiac Disorders Surgical History SURGICAL: Negative Cardiac Surgery, Endocrine Surgery, Ear Surgery, Abdominal Surgery, Nephrectomy, Joint Replacement, Neurologic Surgery, Lumpectomy, Section or Organ Transplant Social History SMOKING STATUS: Never smoker SECOND HAND EXPOSURE: No ED Exam Narrative Physical exam: A&O, afebrile and non-toxic appearing 29-year-old female, no acute distress. Lung are clear, RRR, Abdomen is soft with mild to moderate epigastric and right upper quadrant tenderness. There is no tenderness to the left upper quadrant, right or left lower quadrant. She has minimal tenderness to the suprapubic area. No CVA tenderness is noted. Moves all extremities well. Course Course Course Narrative: Initial vital signs blood pressure 108/61, pulse 76, respirations 19 and nonlabored, temp 99.4, O2 sat 97% on room air. CBC reveals a normal white count, normal H&H and normal platelets. CMP reveals normal electrolytes with the exception of a glucose of 125. Normal renal function. Phosphorus and magnesium are normal. Total bili is normal at 0.5, AST elevated at 89, ALT elevated at 58, alk phos elevated at 218. Amylase is normal at 65, and Lipase is elevated at 60. Urinalysis reveals turbid yellow urine with a specific gravity of 1.031 with 3+ blood, negative nitrites, positive leukocyte esterase, 15 RBCs, 150 WBCs and no bacteria. Urine hCG is negative. Gallbladder ultrasound ordered at 2301, ultrasound performed at 345 and preliminary read by [employer] completed at 05 20. Results reveal dilated common bile duct suspicious for choledocholithiasis, gallstones with gallbladder wall thickening which is highly suspicious for acute cholecystitis, hepatomegaly associated with liver steatosis, suspicious for steatosis hepatitis. Discussed case with resident service. They will turn it over to the morning crew at 07 100 and be down to evaluate the patient for possible admission. Quality Measures none Orders Category Date Time Status NPO STAT Care 04/19/25 23:01 Active US gall bladder Stat Exams 04/20/25 03:45 Taken Amylase Stat Lab 04/19/25 23:20 Completed CBC Stat Lab 04/19/25 23:20 Completed Comprehensive Metabolic Panel Stat Lab 04/19/25 23:20 Completed HCG Qualitative,Urine Stat Lab 04/19/25 01:50 Completed Lipase Stat Lab 04/19/25 23:20 Completed Magnesium Stat Lab 04/19/25 23:20 Completed Phosphorous Stat Lab 04/19/25 23:20 Completed Urinalysis, C/S if Indicated Stat Lab 04/19/25 01:50 Completed Urine Culture Stat Lab 04/19/25 01:50 Received Vital Signs Vital signs: Vital Signs Temperature 99.4 F 04/19/25 22:36 Pulse Rate 76 04/19/25 22:36 Respiratory Rate 19 04/19/25 22:36 Blood Pressure 108/61 04/19/25 22:36 Pulse Oximetry (%) 97 04/19/25 22:36 Oxygen Delivery Method Room Air 04/19/25 22:36 Abdominal Pain MDM MDM Narrative MDM Narrative:: Symptoms, exam and diagnostic studies are consistent with: Choledocholithiasis with gallbladder wall thickening highly suspicious for acute cholecystitis. Results explained to the patient. Discussed case with the resident service who will evaluate the patient for possible admission. Patient data External records reviewed:: None Clinical information provided by:: patient Social determinants that could affect healthcare access:: none Patient has the following chronic illnesses:: Patient is 15 days status post vaginal delivery with history of preeclampsia during the . How is presenting disease/condition affected by chronic disease/condition?: uneffected by Evaluation data The following diagnostics were reviewed and interpreted by me:: lab results and radiology exam(s) Lab and/or radiology exams considered but not ordered:: N/A Interpretation Summary: As noted above. Medications / Prescriptions Medications or Prescriptions considered but not ordered:: N/A Medication administrations:: N/A Consultations Consultation(s) initiated? (list below): Yes Consultation #1 (Physician, Specialty, Details): Dr. Hairston, indicates patient needs MRCP however we do not have MRI capabilities on Sundays. Diagnosis Differential diagnosis abdominal pain: abdominal pain, pancreatitis and other (Choledocholithiasis, cholecystitis) Most likely diagnosis given after review of the tests above:: Choledocholithiasis with acute cholecystitis. Admission Indicated Admission indicated?: indicated Explain why admission is indicated or not indicated:: Acute cholecystitis Admission Request Was there a request for admission?: No Disposition Plan Disposition Plan: other (specify) (Care of patient transferred to Dr. Velazquez, Resident ER physician for disposition.) Discharge Plan Prescriptions/Referrals Prescriptions/Med Rec: No Action ferrous sulfate [FeroSul] 325 mg (65 mg iron) tablet 325 mg PO .q day Vitamin 27 mg iron- 800 mcg tablet 1 tab PO .q day Referrals: No Primary/Family,Physician [Primary Care Provider] - In 1 week Patient/Caregiver Discharge Instructions Print Language: Swiss PA/LAND RESOURCE SPECIALIST Supervising Physician PA/CRISTAL Supervising Physician: Dr. Hairston
[2025-04-19 23:28] LABS: Basophils # (Auto) 0.0 Thou/mm3 (0.0-0.2); Basophils % (Auto) 0 % (0-2.5); Eosinophils # (Auto) 0.2 Thou/mm3 (0.0-0.5); Eosinophils % (Auto) 3 % (0-10); Hematocrit 37.7 % (36.0-46.0); Hemoglobin 12.4 g/dL (12.0-16.0); Immature Granulocytes Auto 0.02 Thou/mm3 (0.00-0.00); Lymphocytes # (Auto) 1.3 Thou/mm3 (1.0-4.8); Lymphocytes % (Auto) 15 % (10-50); Mean Corpuscular HGB Conc 32.9 g/dl (31.0-37.0); Mean Corpuscular Hemoglobin 28.1 pg (25.0-35.0); Mean Corpuscular Volume 86 fL (80-100); Monocytes # (Auto) 0.3 Thou/mm3 (0.0-0.8); Monocytes % (Auto) 3 % (0-12); Neutrophils # (Auto) 6.8 Thou/mm3 (1.8-7.7); Neutrophils % (Auto) 78 % (37-80); Nucleated Red Blood Cell # 0.00 Thou/mm3 (0.00-0.00); Nucleated Red Blood Cell % 0 /100 WBC (0); Platelet Count 262 Thou/mm3 (140-440); RDW Standard Deviation 40.4 fL (36.4-46.3); Red Blood Count 4.41 Miln/mm3 (4.00-5.20); White Blood Count 8.7 Thou/mm3 (3.6-11.0)
[2025-04-20 00:16] LABS: Alanine Aminotransferase 58 U/L (10-49); Albumin, Serum 4.3 gm/dL (3.5-5.0); Albumin/Globulin Ratio 1.6 (1.2-2.2); Alkaline Phosphatase 218 U/L (46-116); Amylase 65 U/L (30-118); Anion Gap 10 (7-16); Aspartate Amino Transferase 89 U/L (0-34); BUN/Creatinine Ratio 14 Ratio (12-20); Bilirubin,Total 0.5 mg/dL (0.3-1.2); Blood Urea Nitrogen 13 mg/dL (9-23); Calcium 9.5 mg/dL (8.3-10.6); Calcium (Corrected) 9.5 mg/dL (8.5-10.1); Carbon Dioxide 26.6 mMol/L (20.0-31.0); Chloride 105 mMol/L (98-107); Creatinine (Component) 0.9 mg/dL (0.6-1.3); Estimated Creatinine Clearance 103.1 mL/min (>60); Globulin 2.7 gm/dL (2.3-3.5); Glucose 125 mg/dL (74-106); Lipase 60 U/L (12-53); Magnesium 2.0 mg/dL (1.6-2.6); Osmolality,Calculated 284 (275-295); Phosphorous 4.6 mg/dL (2.4-5.1); Potassium 3.6 mMol/L (3.4-5.1); Sodium 142 mMol/L (136-145); Total Protein 7.0 gm/dL (5.7-8.2); eGFR > 60 See Note
[2025-04-20 01:08] VITALS: BP 127/78; PULSE 67; RESP 19; TEMP 37.1; O2SAT 98
[2025-04-20 02:34] LABS: Collection Type, Urine Clean Catch
[2025-04-20 02:45] LABS: Bilirubin,Urine Negative (Negative); Blood,Urine 3+ (Negative); Clarity,Urine Turbid (Clear/Hazy); Color,Urine Yellow (Lt Yel-Yel); Glucose, Urine Negative (Negative); Hyaline Casts,Urine < 1 /hpf (0-1); Ketones,Urine Negative (Negative); Leukocyte Esterase,Urine Positive (Negative); Nitrite,Urine Negative (Negative); PH,Urine 6.5 (5.0-7.0); Protein,Urine Trace (Neg - Trace); RBC,Urine 15 /hpf (0-3); Specific Gravity,Urine 1.031 (1.001-1.035); Squamous Epithelial Cell,Urine 1 /hpf (0-5); Urobilinogen,Urine 2.0 mg/dL (0.0-1.0); WBC,Urine 150 /hpf (0-5)
[2025-04-20 02:53] LABS: HCG Qualitative,Urine Negative
[2025-04-20 02:54] LABS: Culture Indicated,Urine Yes
--- NOTE | 2025-04-20 03:45 | XR_ITS ---
Examination: Abdomen sonogram, Limited Date and time of exam: April 20, 2025, 0349 hours INDICATIONS: Epigastric pain and right upper abdominal pain beginning 2 days ago Technique: Real-time burroughs scale transabdominal sonographic images of the upper abdomen obtained. Findings: Multiple gallstones Gallbladder wall 0.37 cm no edema Common bile duct 0.5 cm Pancreatic head 3.3 cm July 19.1 cm fatty infiltration no focal liver lesions Normal hepatopedal portal venous flow Patent IVC IMPRESSION: Cholelithiasis Borderline thickening gallbladder wall 0.37 cm, clinical correlation advised. Consider HIDA scan or MRCP follow-up as clinically warranted
--- NOTE | 2025-04-20 04:30 | PC.NURSE ---
Box Attacher assumes care of patient at this time, pt denies any acute pain or distress at this time, but reports epigastic pain prior to arrival to ED, pt denies any N/V/D or recent illness. Bed in low position and locked with side rails up x 2 and call light in reach
[2025-04-20 04:42] VITALS: BP 102/57; PULSE 59; RESP 20; TEMP 36.9; O2SAT 97
--- NOTE | 2025-04-20 05:21 | PRELIM_ITS ---
Right upper quadrant abdominal ultrasound with Doppler and wave Doppler spectral analysis. April 20, 2025 at 0349 hours Clinical history: Epigastric and right upper quadrant abdominal pain. Technique: Grayscale and color flow images of the right upper quadrant are provided. Hepatic and portal veins were also imaged with color flow images. Comparison: No prior study is available for comparison. Findings: The liver is enlarged and demonstrates increased echogenicity. No intrahepatic biliary ductal dilatation. Gallbladder wall thickening. Gallstones. No pericholecystic fluid is demonstrated. The common bile duct is dilated in caliber at 5.4 mm. The pancreas is unremarkable to the extent visualized. The imaged portions of the right kidney are within normal limits. The portal vein is patent with hepatopetal flow and normal with Doppler spectral analysis. Impression: 1. Dilated CBD suspicious for choledocholithiasis. 2. Gallstones send gallbladder wall thickening are highly suspicious for acute cholecystitis. 3. Palomino sign is not available at the time of this report. 4. Hepatomegaly associated with liver steatosis, suspicious for steatohepatitis. Report Electronically Signed By: Franky Freed 04/20/2025 5:20:50 AM [EST]
[2025-04-20 06:00] VITALS: BP 116/67; PULSE 57; RESP 18; TEMP 37; O2SAT 97
--- NOTE | 2025-04-20 06:37 | EDNOTE_ITS ---
Emergency Room Addendum Addendum Narrative: Gen: A&O X 3, NAD HEENT: NCAT, EOMI, Pupils reactive ABHINAV, not icteric. External ears normal. No rhinorrhea. Moist mucous membranes. Neck: Supple, full range of motion, no observable masses, No meningeal sign. Lungs: No Respiratory distress, clear bilateral. CV: RRR, no murmurs. Abdomen: Soft, nondistended, mild tenderness to deep palpation, No rebound tenderness. MSK: No joint swelling, no redness, peripheral pulses presents, lumbar with no edema. Skin: No rashes, petechiae, lesions.. Neuro: No focal neurological deficits appreciated, sensory and motor intact. Psych: Cooperative, appropriate mood and effect. 6:20: Care assumed from Reshma. Patient was reassessed after labs and imaging were reviewed. Abdominal ultrasound that show dilated CBD at 5.4 cm suspicion for choledocholithiasis, gallstones, and gallbladder wall thickening suspicious for acute calculus cholecystitis. Vital signs were stable with no spikes in fevers, blood pressure was mildly on the lower end, but MAP above 65. Patient's physical exam again noted to be benign and patient looked nontoxic. Patient was not complaining of any further pain and stated that her epigastric pain had disappeared. 6:36: Reordered CBC, CMP, lactic acid to reevaluate any spikes in WBCs, u ptrending LFTs, and any uptrending lactic acid. Discussed with patient ultrasound findings and need for MRCP. 8:38: Reviewed repeat labs and remained fairly unchanged, mildly increase in AST and ALT and alkaline phosphatase, T. bili alone still within normal limits. Patient continues to have no pain at this time and does not have any fevers, vitals are within normal limits, and patient does not have any nausea or vomiting. At this time patient was instructed to come back for MRCP tomorrow morning, but to come back to the ED if she develops fever, worsening abdominal pain, jaundice, nausea, vomiting, or any other worsening symptoms. Case disclosed with Attending Dr. Marika Mcdonald PGY2 Disclaimer: Even though this this note was dictated by speech recognition and even though it was carefully revised there may still be minor errors in tool maintenance worker due to voice recognition software.
--- NOTE | 2025-04-20 07:28 | PC.NURSE ---
PT RESTING W/EYES CLOSED UPON ASSUMPTION OF CARE, UNLABORED BREATHING, EVEN RISE AND FALL OF CHEST, VSS ON TELE. PT ALERT TO VOICE FOR ASSESSMENT. PT DENIES ANY PAIN AT THIS TIME, UP TO DATE ON POC AND IN AGREEMENT. WILL CONT W/POC.
[2025-04-20 07:37] LABS: Lactate (Lactic Acid) 0.7 mMol/L (0.4-2.0)
[2025-04-20 07:42] LABS: Basophils # (Auto) 0.0 Thou/mm3 (0.0-0.2); Basophils % (Auto) 0 % (0-2.5); Eosinophils # (Auto) 0.3 Thou/mm3 (0.0-0.5); Eosinophils % (Auto) 5 % (0-10); Hematocrit 35.5 % (36.0-46.0); Hemoglobin 12.0 g/dL (12.0-16.0); Immature Granulocytes Auto 0.01 Thou/mm3 (0.00-0.00); Lymphocytes # (Auto) 1.7 Thou/mm3 (1.0-4.8); Lymphocytes % (Auto) 28 % (10-50); Mean Corpuscular HGB Conc 33.8 g/dl (31.0-37.0); Mean Corpuscular Hemoglobin 28.6 pg (25.0-35.0); Mean Corpuscular Volume 85 fL (80-100); Monocytes # (Auto) 0.2 Thou/mm3 (0.0-0.8); Monocytes % (Auto) 4 % (0-12); Neutrophils # (Auto) 3.7 Thou/mm3 (1.8-7.7); Neutrophils % (Auto) 63 % (37-80); Nucleated Red Blood Cell # 0.00 Thou/mm3 (0.00-0.00); Nucleated Red Blood Cell % 0 /100 WBC (0); Platelet Count 261 Thou/mm3 (140-440); RDW Standard Deviation 40.5 fL (36.4-46.3); Red Blood Count 4.20 Miln/mm3 (4.00-5.20); White Blood Count 6.0 Thou/mm3 (3.6-11.0)
[2025-04-20 08:07] LABS: Alanine Aminotransferase 119 U/L (10-49); Albumin, Serum 4.1 gm/dL (3.5-5.0); Albumin/Globulin Ratio 1.9 (1.2-2.2); Alkaline Phosphatase 261 U/L (46-116); Anion Gap 10 (7-16); Aspartate Amino Transferase 109 U/L (0-34); BUN/Creatinine Ratio 17 Ratio (12-20); Bilirubin,Total 0.3 mg/dL (0.3-1.2); Blood Urea Nitrogen 12 mg/dL (9-23); Calcium 8.8 mg/dL (8.3-10.6); Calcium (Corrected) 8.8 mg/dL (8.5-10.1); Carbon Dioxide 22.7 mMol/L (20.0-31.0); Chloride 108 mMol/L (98-107); Creatinine (Component) 0.7 mg/dL (0.6-1.3); Estimated Creatinine Clearance 132.5 mL/min (>60); Globulin 2.2 gm/dL (2.3-3.5); Glucose 107 mg/dL (74-106); Osmolality,Calculated 280 (275-295); Potassium 4.0 mMol/L (3.4-5.1); Sodium 141 mMol/L (136-145); Total Protein 6.3 gm/dL (5.7-8.2); eGFR > 60 See Note
[2025-04-20 08:18] VITALS: BP 119/62; PULSE 70; RESP 16; TEMP 36.8; O2SAT 98
[2025-04-20 09:08] VITALS: BP 103/69; PULSE 60; RESP 18; TEMP 36.9; O2SAT 99
== END 2025-04-20 09:14 | disposition home or self-care (01) ==
PROVIDERS: Physician Assistant; Emergency Provider Emergency Medicine
DX: K80.20 Calculus of gallbladder without cholecystitis without obstruction (principal)
CPT/HCPCS: 36415; 76705; 80053; 81001; 81025; 82150; 83605; 83690; 83735; 84100; 85025; 87086; 99283

== ENCOUNTER 2025-04-21 07:07 | Emergency (ER) | payer MEDICAID, SELFPAY ==
--- NOTE | 2025-04-21 | XR_ITS ---
MRI abdomen, without contrast. MRCP Date and time of exam: April 21, 2025 1027 hours INDICATIONS: Epigastric pain beginning 2 days ago diaphoresis, abdomen sonogram April 20, 2025 cholelithiasis, borderline thickening gallbladder wall Technique: Multiple axial and coronal images of the abdomen have been obtained with the Siemens 1.5T MRI scanner. Images obtained included T1 weighted transverse images, T2-weighted transverse images, T2-weighted transverse images fat-suppressed, T2 weighted haste fat suppressed transverse images, T1 weighted images, in and out of phase images, T2-weighted coronal images, breath hold, T2 weighted haze coronal images as well as T2 weighted coronal thick slab images, MRCP. Findings: No focal liver lesions Multiple gallstones Gallbladder wall is not thickened or edematous Normal common hepatic common bile duct, no extrahepatic biliary stones No peripancreatic edema No splenic lesion No hydronephrosis No ascites IMPRESSION: Cholelithiasis, negative for cholecystitis No common hepatic or common bile duct stones
[2025-04-21 07:07] VITALS: BMI 39.6
[2025-04-21 07:15] VITALS: BP 127/79; PULSE 58; RESP 18; TEMP 37.1; O2SAT 96
--- NOTE | 2025-04-21 07:23 | PD.EDRME ---
Rapid Medical Screening Exam RME Arrival date/time: 04/21/25 07:07 29-year-old female with no known medical history presents to the emergency room for an MRCP. Patient was seen here on Monday and discharged yesterday morning and was told to return Monday morning for an MRCP as she has gallstones and epigastric pain. I have greeted and performed a focused initial assessment of this patient. A comprehensive ED assessment and evaluation of the patient, analysis of all test results, and completion of the medical decision making process will be conducted by additional ED providers. Chief Complaint: General Adult/Misc Complain Time Seen by Provider: 04/21/25 07:20 Vital signs: Vital Signs Temperature 98.7 F 04/21/25 07:15 Pulse Rate 58 L 04/21/25 07:15 Respiratory Rate 18 04/21/25 07:15 Blood Pressure 127/79 04/21/25 07:15 Pulse Oximetry (%) 96 04/21/25 07:15 Oxygen Delivery Method Room Air 04/21/25 07:15 Vital signs reviewed by provider: Yes
--- NOTE | 2025-04-21 08:14 | EDNOTE_ITS ---
<Statement entered by Susan Kay MD - 04/21/25 17:23> As co-signing physician, I was present and available for consult prn. I concur with the plan and care as documented by the midlevel provider. ED General RME/HPI General Chief complaint: General Adult/Misc Complain Stated complaint: RETURNED FOR MRCP Time Seen by Provider: 04/21/25 07:20 Arrival date/time: 04/21/25 07:07 RME / HPI RME / HPI narrative: 04/21/25 07:07 29-year-old female with no known medical history presents to the emergency room for an MRCP. Patient was seen here on Monday and discharged yesterday morning and was told to return Monday morning for an MRCP as she has gallstones and epigastric pain. I have greeted and performed a focused initial assessment of this patient. A comprehensive ED assessment and evaluation of the patient, analysis of all test results, and completion of the medical decision making process will be conducted by additional ED providers. 29-year-old female with no relevant past medical history came into the ED today as she was told yesterday to come back to the ED this morning to get MRCP. She stated that she had some mild epigastric pain yesterday again, but it resolved spontaneously shortly after without taking any medication. Otherwise she denied having any fevers, chills, yellowing of the skin, nausea, or vomiting, or changes in bowel movement. Related Data Home Medications ?Medication ?Instructions ?Recorded ?Confirmed ferrous sulfate 325 mg (65 mg 325 mg PO .q day 5 04/05/25 iron) tablet (FeroSul) vits no.130-ferrous fum 1 tab PO .q day 04/0504/05/25 27 mg iron-folic acid 800 mcg tablet ( Vitamin) Allergies Allergy/AdvReac Type Severity Reaction Status Date / Time No Known Allergies Allergy Verified 04/21/25 07:09 Review of Systems Review of Systems Systems Reviewed: All systems reviewed, normal except as documented Past Medical History Past Medical History NEUROLOGIC: Negative Neurological Disorders CARDIAC: Negative Cardiac Disorders or Congestive Heart Failure RESPIRATORY: Negative Chronic Obstructive Pulmonary Disease (COPD) GASTROINTESTINAL: Negative Gastrointestinal Disorders GENITOURINARY: Negative Genitourinary Disorders or Renal Disease REPRODUCTIVE: Negative Pelvic Inflammatory Disease MUSCULOSKELETAL: Negative Musculoskeletal Disorders ENDOCRINE: Negative Endocrine Disorders, Diabetes Mellitus Type 1 or Diabetes Mellitus Type 2 HEMATOLOGIC: Negative Blood Disorders OTHER HISTORY: Negative Autoimmune Disease, Blood Transfusions, Blood Transfusion Reaction, Anesthesia Reactions, Organ Transplant, MRSA, Clostridium Difficile or Cancer Family History FAMILY HISTORY: Negative Family Cardiac Disorders Surgical History SURGICAL: Negative Cardiac Surgery, Endocrine Surgery, Ear Surgery, Abdominal Surgery, Nephrectomy, Joint Replacement, Neurologic Surgery, Lumpectomy, Section or Organ Transplant Social History SMOKING STATUS: Never smoker SECOND HAND EXPOSURE: No ED Exam Narrative Physical exam: Gen: A&O X 3, NAD HEENT: NCAT, EOMI, Pupils reactive ABHINAV, not icteric. External ears normal. No rhinorrhea. Moist mucous membranes. Neck: Supple, full range of motion, no observable masses, No meningeal sign. Lungs: No Respiratory distress, clear bilateral. CV: RRR, no murmurs. Abdomen: Soft, nondistended, mild epigastric pain, No rebound tenderness. MSK: No joint swelling, no redness, peripheral pulses presents, lumbar with no edema. Skin: No rashes, petechiae, lesions.. Neuro: No focal neurological deficits appreciated, sensory and motor intact. Psych: Cooperative, appropriate mood and effect. Course Quality Measures none Orders Category Date Time Status MRI Screening NOW Care 04/21/25 07:22 Active MR MRCP Stat Exams 04/21/25 Completed CBC Stat Lab 04/21/25 08:45 Completed CMP [Comprehensive Metabolic Panel] Stat Lab 04/21/25 08:45 Completed Lipase Stat Lab 04/21/25 08:45 Completed UA [Urinalysis] Stat Lab 04/21/25 07:22 Ordered Vital Signs Vital signs: Vital Signs Temperature 98.7 F 04/21/25 07:15 Pulse Rate 58 L 04/21/25 07:15 Respiratory Rate 18 04/21/25 07:15 Blood Pressure 127/79 04/21/25 07:15 Pulse Oximetry (%) 96 04/21/25 07:15 Oxygen Delivery Method Room Air 04/21/25 07:15 Discharge Plan Plan Patient Disposition: HOME (Self Care) Prescriptions/Referrals Prescriptions/Med Rec: No Action ferrous sulfate [FeroSul] 325 mg (65 mg iron) tablet 325 mg PO .q day Vitamin 27 mg iron- 800 mcg tablet 1 tab PO .q day Referrals: No Primary/Family,Physician [Primary Care Provider] - In 1 week Problem List Clinical Impression: Cholelithiasis Patient/Caregiver Discharge Instructions Other Activity Instructions:: Follow up primary care physician within 5 days Recommend follow-up outpatient with general surgeon for possible outpatient cholecystectomy versus nonoperative management. Can take Tylenol every 6 hours for the next 3 days for pain. Come back to the ER if you develop symptoms including fevers, chills, nausea, vomiting, or worsening abdominal pain. Education Materials: What Are Gallstones, Discharge Instructions for ... Print Language: Indian Stand Alone Forms: Lorenza Award Info., Patient Portal Info Letter MDM Narrative [facility] hospital course: 8:12: Patient arrived and was assessed by myself after chart was reviewed. Pending MRCP. 11:40: MRCP reviewed and showed cholelithiasis, negative for cholecystitis or common bile duct stones. Discussed findings with patient and at this time patient is stable enough to be discharged home. Case disclosed with Attending Dr. Rahul Mcdonald PGY2 Disclaimer: Even though this this note was dictated by speech recognition and even though it was carefully revised there may still be minor errors in director of parks and recreation due to voice recognition software.
[2025-04-21 08:19] VITALS: BP 126/83; PULSE 60; RESP 16; TEMP 36.6; O2SAT 98
--- NOTE | 2025-04-21 08:23 | PC.NURSE ---
CALLED MRI FOR MRCP FOR PATIENT. BIBIANA MORENO AT [facility] PATIENT DOES NOT NEED IV OR LABS FOR THIS PROCEDURE.
[2025-04-21 09:00] LABS: Basophils # (Auto) 0.0 Thou/mm3 (0.0-0.2); Basophils % (Auto) 1 % (0-2.5); Eosinophils # (Auto) 0.3 Thou/mm3 (0.0-0.5); Eosinophils % (Auto) 6 % (0-10); Hematocrit 36.5 % (36.0-46.0); Hemoglobin 11.7 g/dL (12.0-16.0); Immature Granulocytes Auto 0.02 Thou/mm3 (0.00-0.00); Lymphocytes # (Auto) 2.2 Thou/mm3 (1.0-4.8); Lymphocytes % (Auto) 42 % (10-50); Mean Corpuscular HGB Conc 32.1 g/dl (31.0-37.0); Mean Corpuscular Hemoglobin 27.7 pg (25.0-35.0); Mean Corpuscular Volume 87 fL (80-100); Monocytes # (Auto) 0.2 Thou/mm3 (0.0-0.8); Monocytes % (Auto) 4 % (0-12); Neutrophils # (Auto) 2.5 Thou/mm3 (1.8-7.7); Neutrophils % (Auto) 47 % (37-80); Nucleated Red Blood Cell # 0.00 Thou/mm3 (0.00-0.00); Nucleated Red Blood Cell % 0 /100 WBC (0); Platelet Count 271 Thou/mm3 (140-440); RDW Standard Deviation 41.2 fL (36.4-46.3); Red Blood Count 4.22 Miln/mm3 (4.00-5.20); White Blood Count 5.2 Thou/mm3 (3.6-11.0)
[2025-04-21 09:13] LABS: Alanine Aminotransferase 110 U/L (10-49); Albumin, Serum 4.1 gm/dL (3.5-5.0); Albumin/Globulin Ratio 1.9 (1.2-2.2); Alkaline Phosphatase 282 U/L (46-116); Anion Gap 10 (7-16); Aspartate Amino Transferase 54 U/L (0-34); BUN/Creatinine Ratio 21 Ratio (12-20); Bilirubin,Total 0.3 mg/dL (0.3-1.2); Blood Urea Nitrogen 19 mg/dL (9-23); Calcium 8.8 mg/dL (8.3-10.6); Calcium (Corrected) 8.8 mg/dL (8.5-10.1); Carbon Dioxide 24.0 mMol/L (20.0-31.0); Chloride 107 mMol/L (98-107); Creatinine (Component) 0.9 mg/dL (0.6-1.3); Estimated Creatinine Clearance 103.1 mL/min (>60); Globulin 2.2 gm/dL (2.3-3.5); Glucose 116 mg/dL (74-106); Lipase 38 U/L (12-53); Osmolality,Calculated 284 (275-295); Potassium 3.6 mMol/L (3.4-5.1); Sodium 141 mMol/L (136-145); Total Protein 6.3 gm/dL (5.7-8.2); eGFR > 60 See Note
[2025-04-21 11:55] VITALS: BP 134/78; PULSE 56; RESP 19; TEMP 36.9; O2SAT 98
== END 2025-04-21 11:56 | disposition home or self-care (01) ==
PROVIDERS: Nurse Practitioner Family; Emergency Provider Emergency Medicine
DX: K80.20 Calculus of gallbladder without cholecystitis without obstruction (principal)
CPT/HCPCS: 36415; 74181; 80053; 81001; 81025; 83690; 85025; 87086; 99283

== ENCOUNTER 2025-04-22 10:38 | Outpatient (AMB) | payer MEDICAID, SELFPAY ==
[2025-04-22 10:52] VITALS: BP 112/76; PULSE 52; RESP 17; TEMP 36.6; O2SAT 98; BMI 38.9
--- NOTE | 2025-04-22 10:52 | AMBOBPPN_ITS ---
Vital Signs 04/22/25 10:52 Height 1.6 m Height Method Stated Weight 99.564 kg Weight Measurement Method Standing Scale BMI 38.9 BP 112/76 Blood Pressure Source Automatic Cuff Blood Pressure Location Right Upper Arm Position Sitting Respiration 17 Pulse 52 L Pulse Source Monitor Temp 97.8 F Temp Source Temporal Artery Scan Pulse Oximetry (%) 98 Oxygen Delivery Method Room Air Allergies/Home Meds Allergies & Medications Allergies No Known Allergies Allergy (Verified 04/22/25 11:10) Medication Reconciliation ferrous sulfate 325 mg (65 mg iron) tablet (FeroSul) 325 mg PO .q day 04/05/25 [History Confirmed 04/22/25] vits no.130-ferrous fum 27 mg iron-folic acid 800 mcg tablet ( Vitamin) 1 tab PO .q day 04/05/25 [History Confirmed 04/22/25] Intake Visit Data Collection New Patient or Established: Established Patient (seen at [facility] within 3 years) Reason for Visit:: Seen by Clinical Staff ONLY (RN/MA): No Benzene Washer Operator Required: No Do You Feel Safe at Home: Yes Authorities Contacted: N/A PCP or OBGYN visit in last 3 months: Yes Hx Now: No Are you currently on any form of Control: No Pain Present Currently: No Pain Scale Used: Gifford-Davis/Numerical Pain scale:: 0 Smoking Status Smoking Status: Never smoker NEGOTIATIONS DIRECTOR: Past Medical History Past Medical History: No Hx Neurological Disorders, No Hx Cardiac Disorders, No Hx Cancer, No Hx Blood Disorders, No Hx Gastrointestinal Disorders, No Hx Renal Disease, No Hx Diabetes Mellitus Type 1 and No Hx Diabetes Mellitus Type 2 Questionnaires Covid-19 Vaccine Questionnaire Has patient been vacinated for Covid-19 Have you been vacinated for Covid-19: No Social History Living Situation History Marital Status: Lives With: Spouse Housing: House Tobacco History Smoking Status: Never smoker Second Hand Smoke Exposure: No Alcohol History Alcohol Intake: Never Domestic Abuse History Do You Feel Safe at Home: Yes EPDS - PP Depression Screening [place] Pospartum Depression Screen I have been able to laugh and see the funny side of things: (0) As much as I always could I have looked forward with enjoyment to things: (0) As much as I ever did I have blamed myself unnecessarily when things went wrong: (0) No, never I have been anxious or worried for no good reason: (0) No, not at all I have felt scared or panicky for no very good reason: (0) No, not at all Things have been getting on top of me: (0) No, I have been coping as well as ever I have been so unhappy that I have had difficulty sleeping: (0) No, not at all I have felt sad or miserable: (0) No, not at all I have been so unhappy that I have been crying: (0) No, never The thought of harming myself has occurred to me: (0) Never EPDS completed yes Care OB Visit Log OB Flowsheet Initial Weight: Not Recorded Date -?-?-?-?-?-?-?-?-?-?-?-?- EGA Weight BP Alb Glu CTX Pres Fundal ht FHR Mov Dilation Station Effacement Hx Notes Visit Note 03/05/25 -?-?-?-?-?-?-?-?-?-?-?-?- 30w 6d 105.233 kg 114/78 absent cephalic 32 14 5 active [address] Rodríguez, fetus active, no PTL complaints,no ROM,no Bledding. taking PNV and iron review lab, disc uss PTL precaution, fkc bid reviewed, continue PNV and IRON, f/u [facility] 04/18 rtc 2 week OBC 03/26/25 -?-?-?-?-?-?-?-?-?-?-?-?- 33w 6d 107.955 kg 121/82 absent cephalic 33 14 3 absent pressure. no c/o UC,no leaking or bleeding. [facility] 03/25: IUP 33w5, EFW: 79%,ROSSY wnl, vertex, 7 cm fibroid/extramural review sono, discuss diet,weight gain, walk 40 minute. discuss ptl precaution. FKC BID, TDAP, start week NST/BPP, GBS nv review sono, discuss diet,we ight gain, walk 40 minute. discuss ptl precaution. FKC BID, TDAP, start week NST/BPP, GBS nv, stop asa at 36 week, IOL 39 - 39w6 TOYIN Calculator Estimated Delivery Date Method Current WG Current Estimate 05/08/25 LMP (Certain) 37w 5d Other Estimates 05/04/25 Ultrasound #1 38w 2d 05/08/25 Ultrasound #2 37w 5d Notes Visit Date: 03/26/25 Last Updated by: Michelle Del Rio CNM 3rd tri lab: , RPR:NR, GC/CT-, 1 hr gtt: 129. sono 03/25: iup 33w5, efw: 79%, ROSSY wnl, vertex. fibroid 7cm Visit Date: 03/05/25 Last Updated by: Michelle Del Rio CNM 29 yo . lmp 08/01/24. EDC 05/08/25. sono :10/29/24: 13.5; EDC 05/01/25. Uterine fibroid/7cm/fundal/post.A+,abs-, rpr;;nr, rub imm, hbsag-,hiv-,hc-, GC/CT-, 1 hr gtt wnl//298 HPI Interval History: 29-year-old 1 para 1 for 2-week . Patient had a vaginal deli very April 06, 2025. She delivered at 35 weeks and 2 days. History of PPROM. Patient had a baby boy 6 pounds 3. She is breast and bottlefeeding. Father the baby is involved. She has limited help at home. Both are happy no signs of depression. She is unsure what she wants to use for control. She is not sexually active Was or delivery considered high risk: Yes Delivery type: vaginal Was labor induced: no (augmented) Gestational age at delivery (weeks): 35.2 Delivery date: 04/06/25 Delivering provider: kasey Delivery complications: No Delivery complications comment: Baby to NICU x 2 days Is patient : Yes Is patient sexually active: No Contraception planned: unsure Review of Systems Review of Systems ROS limited to current NEGOTIATIONS DIRECTOR complaints: Yes Exam Narrative Physical exam: Normal heart rate and rhythm. Lungs clear no wheezes. Abdomen is soft nontender. Uterus well involuted. Perineum is intact no lacerations. No swelling. Small lochia. Negative Homans' sign. 2+ DTRs. No edema no swelling. Breasts are soft General Limitations: no limitations General Appearance: alert, in no apparent distress, comfortable, cooperative, healthy appearing, well developed and well groomed Head Head exam: atraumatic, normocephalic and normal inspection Chest Chest inspection: Present normal inspection and symmetric chest wall rise Resp Respiratory exam: Present normal lung sounds bilaterally Card Cardiovascular exam: Present regular rate, normal rhythm and normal heart sounds Psych Psychiatric exam: Present normal affect and normal mood Office Procedures OB Clinic LOC & Office Proc's Nursing/Assessment Patient Status: Established Patient OB Clinic Nursing Assessment: Medication Reconciliation, Update PMH in EMR and Vital Signs OB Clinic Coordination of Care: Complex Care and Chronic Disease 1-5, Con sent,records obtained, informed consent, Education Simp Pt/Fam and Staff clarify orders Established Patient Charge Established Patient Point Assignment: 85 Post Follow-up Visit Post Follow up Visit: Yes Assessment & Plan Diagnosis / Problem List (1) Routine Follow-Up: (2) 2 weeks follow-up: Status: Acute Plan discuss pumping. Brewers yeast tab 3-4 tid, increase fluid and frequent pumping, continue PNV. control offered. Patient will use rhythm for now. Increase rest. Return in 3 weeks 6-week control Care Reviewed delivery summary and any complications: Yes Uterus involuted to: 3 below Perineal / incision healing noted: Yes Screened for depression: Yes Depression counseling provided: No Contraception planned: unsure Counseling on safe resumption of sexual activity: Yes Counseling on gradual excercise: Yes Discussed and concerns (describe), provided support: Yes Referred to recruitment specialist: No Counseled on good nutrition, hydration, and self care: Yes Reviewed vaccine status: No Chronic & current problems reconciled on problem list: Yes care discussed; questions answered: feeding Follow up: routine/prn (FP) Tobacco Smoking Status: Never smoker Delivery Data Delivery Data Delivered by: Mamie Clement
== END 2025-04-22 11:09 | disposition home or self-care (01) ==
LOC: HODSOBC 10:38
PROVIDERS: Supervising Provider Advanced Practice Midwife; Visit Provider Advanced Practice Midwife
DX: Z39.2 Encounter for routine postpartum follow-up (principal); Z39.1 Encounter for care and examination of lactating mother
CPT/HCPCS: Z1038

== ENCOUNTER 2025-05-13 10:22 | Outpatient (AMB) | payer MEDICAID, SELFPAY ==
[2025-05-13 10:40] VITALS: BP 109/71; PULSE 56; RESP 17; TEMP 36.5; O2SAT 96; BMI 39.5
--- NOTE | 2025-05-13 10:40 | AMB.OBPP ---
Vital Signs 05/13/25 10:40 Height 1.6 m Height Method Measured Weight 101.264 kg Weight Measurement Method Standing Scale BMI 39.5 BP 109/71 Blood Pressure Source Automatic Cuff Blood Pressure Location Right Upper Arm Position Sitting Respiration 17 Pulse 56 L Pulse Source Monitor Temp 97.7 F Temp Source Temporal Artery Scan Pulse Oximetry (%) 96 Oxygen Delivery Method Room Air Allergies/Home Meds Allergies & Medications Allergies No Known Allergies Allergy (Verified 05/13/25 10:41) Medication Reconciliation ferrous sulfate 325 mg (65 mg iron) tablet (FeroSul) 325 mg PO .q day 04/05/25 [History Confirmed 05/13/25] vits no.130-ferrous fum 27 mg iron-folic acid 800 mcg tablet ( Vitamin) 1 tab PO .q day 04/05/25 [History Confirmed 05/13/25] Intake Visit Data Collection New Patient or Established: Established Patient (seen at [facility] within 3 years) Reason for Visit:: Consent obtained for Telemed Visit: No Seen by Clinical Staff ONLY (RN/MA): No All Around Presser Required: No Do You Feel Safe at Home: Yes Authorities Contacted: N/A PCP or OBGYN visit in last 3 months: Yes Date of Last PCP or OBGYN visit: 04/22/25 Hx Now: No Are you currently on any form of Control: No Pain Present Currently: No Pain Scale Used: Gifford-Davis/Numerical Pain scale:: 0 Smoking Status 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 Past Medical History: No Hx Neurological Disorders, No Hx Cardiac Disorders, No Hx Cancer, No Hx Blood Disorders, No Hx Gastrointestinal Disorders, No Hx Renal Disease, No Hx Diabetes Mellitus Type 1 and No Hx Diabetes Mellitus Type 2 Questionnaires Covid-19 Vaccine Questionnaire Has patient been vacinated for Covid-19 Have you been vacinated for Covid-19: No Social History Living Situation History Lives With: Spouse Housing: House Tobacco History Smoking Status: Never smoker Second Hand Smoke Exposure: No Alcohol History Alcohol Intake: Never Domestic Abuse History Do You Feel Safe at Home: Yes EPDS - PP Depression Screening [place] Pospartum Depression Screen I have been able to laugh and see the funny side of things: (0) As much as I always could I have looked forward with enjoyment to things: (0) As much as I ever did I have blamed myself unnecessarily when things went wrong: (0) No, never I have been anxious or worried for no good reason: (0) No, not at all I have felt scared or panicky for no very good reason: (0) No, not at all Things have been getting on top of me: (0) No, I have been coping as well as ever I have been so unhappy that I have had difficulty sleeping: (0) No, not at all I have felt sad or miserable: (0) No, not at all I have been so unhappy that I have been crying: (0) No, never The thought of harming myself has occurred to me: (0) Never Care OB Visit Log OB Flowsheet Initial Weight: Not Recorded Date <del>?</del> EGA Weight BP Alb Glu CTX Pres Fundal ht FHR Mov Dilation Station Effacement Hx Notes Visit Note 03/05/25 <del>?</del> 30w 6d 105.233 kg 114/78 absent cephalic 32 145 active [address] Rodríguez, fetus active, no PTL complaints,no ROM,no Bledding. taking PNV and iron review lab, discuss PTL precaution, fkc bid reviewed, continue PNV and IRON, f/u [facility] 04/18 rtc 2 week OBC 03/26/25 <del>?</del> 33w 6d 107.955 kg 121/82 absent cephalic 33 143 absent pressure. no c/o UC,no leaking or bleeding. [facility] 03/25: IUP 33w5, EFW: 79%,ROSSY wnl, vertex, 7 cm fibroid/extramural review sono, discuss diet,weight gain, walk 40 minute. discuss ptl precaution. FKC BID, TDAP, start week NST/BPP, GBS nv review sono, discuss diet,weight gain, walk 40 minute. discuss ptl precaution. FKC BID, TDAP, start week NST/BPP, GBS nv, stop asa at 36 week, IOL 39 - 39w6 TOYIN Calculator Estimated Delivery Date Method Current WG Current Estimate 05/08/25 LMP (Certain) 40w 5d Other Estimates 05/04/25 Ultrasound #1 41w 2d 05/08/25 Ultrasound #2 40w 5d Notes Visit Date: 03/26/25 Last Updated by: Michelle Del Rio CNM 3rd tri lab: , RPR:NR, GC/CT-, 1 hr gtt: 129. sono 03/25: iup 33w5, efw: 79%, ROSSY wnl, vertex. fibroid 7cm Visit Date: 03/05/25 Last Updated by: Michelle Del Rio CNM 29 yo . lmp 08/01/24. EDC 05/08/25. sono :10/29/24: 13.5; EDC 05/01/25. Uterine fibroid/7cm/fundal/post.A+,abs-, rpr;;nr, rub imm, hbsag-,hiv-,hc-, GC/CT-, 1 hr gtt wnl//298 HPI Interval History: 29 yo for 5 week PP. at 35 week 04/06/25. baby boy 6lb. breast and bottle. happy, no depression. family involved, supportive. Patient reports she is doing well except for feeling tired. Plans to use condoms. 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 Lungs clear no wheezes. Abdomen is soft nontender. Uterus well involuted. Perineum is intact no lacerations. No swelling. Small lochia. Negative Homans' sign. 2+ DTRs. No edema no swelling. Breasts are soft, both breast soft, non tender, no masses, nipples intact, no mastitis General Limitations: no limitations General Appearance: alert, in no apparent distress, comfortable, cooperative, healthy appearing, well developed and well groomed ENT ENT exam: Present normal exam, normal oropharynx and mucous membranes moist Neck Neck exam: Present normal inspection, full ROM and trachea midline Chest Chest inspection: Present normal inspection and symmetric chest wall rise Resp Respiratory exam: Present normal lung sounds bilaterally Psych Psychiatric exam: Present normal affect and normal mood Office Procedures OB Clinic LOC & Office Proc's Nursing/Assessment Patient Status: Established Patient OB Clinic Nursing Assessment: Medication Reconciliation, Update PMH in EMR and Vital Signs OB Clinic Coordination of Care: Complex Care and Chronic Disease 1-5, Consent,records obtained, informed consent and Education Simp Pt/Fam Established Patient Charge Established Patient Point Assignment: 75 Post Follow-up Visit Post Follow up Visit: Yes Assessment & Plan Diagnosis / Problem List (1) Routine Follow-Up: (2) 6 weeks follow-up: Status: Acute Plan offer contraception. patient declined, plans on condom. attempt to sched pap. patient will call to schedule. continue PNV, hydrate. continue PNV. RTC for pap Care Reviewed delivery summary and any complications: Yes Uterus involuted to: 3 below Perineal / incision healing noted: Yes Screened for depression: Yes Depression counseling provided: No Discussed family planning & contraception: Yes Contraception planned: condom Counseling on safe resumption of sexual activity: Yes Counseling on gradual excercise: Yes Discussed and concerns (describe), provided support: Yes Referred to internal communications specialist: No Counseled on good nutrition, hydration, and self care: Yes Reviewed vaccine status: No Chronic & current problems reconciled on problem list: Yes care discussed; questions answered: feeding Follow up: routine/prn (FP) Tobacco Smoking Status: Never smoker
== END 2025-05-13 11:55 | disposition home or self-care (01) ==
LOC: HODSOBC 10:22
PROVIDERS: Supervising Provider Advanced Practice Midwife; Visit Provider Advanced Practice Midwife
DX: Z39.2 Encounter for routine postpartum follow-up (principal); Z39.1 Encounter for care and examination of lactating mother
CPT/HCPCS: 59430

== ENCOUNTER 2025-06-26 06:20 | Day surgery (SDC) | payer MEDICAID, SELFPAY ==
[2025-06-20 10:48] VITALS: BMI 39.2
[2025-06-20 11:35] LABS: Basophils # (Auto) 0.0 Thou/mm3 (0.0-0.2); Basophils % (Auto) 1 % (0-2.5); Eosinophils # (Auto) 0.1 Thou/mm3 (0.0-0.5); Eosinophils % (Auto) 2 % (0-10); Hematocrit 38.6 % (36.0-46.0); Hemoglobin 13.0 g/dL (12.0-16.0); Immature Granulocytes Auto 0.02 Thou/mm3 (0.00-0.00); Lymphocytes # (Auto) 2.7 Thou/mm3 (1.0-4.8); Lymphocytes % (Auto) 43 % (10-50); Mean Corpuscular HGB Conc 33.7 g/dl (31.0-37.0); Mean Corpuscular Hemoglobin 28.3 pg (25.0-35.0); Mean Corpuscular Volume 84 fL (80-100); Monocytes # (Auto) 0.4 Thou/mm3 (0.0-0.8); Monocytes % (Auto) 6 % (0-12); Neutrophils # (Auto) 3.1 Thou/mm3 (1.8-7.7); Neutrophils % (Auto) 49 % (37-80); Nucleated Red Blood Cell # 0.00 Thou/mm3 (0.00-0.00); Nucleated Red Blood Cell % 0 /100 WBC (0); Platelet Count 320 Thou/mm3 (140-440); RDW Standard Deviation 41.1 fL (36.4-46.3); Red Blood Count 4.59 Miln/mm3 (4.00-5.20); White Blood Count 6.3 Thou/mm3 (3.6-11.0)
[2025-06-20 11:47] LABS: HCG,Qualitative Serum Negative
[2025-06-20 11:50] LABS: Alanine Aminotransferase 24 U/L (10-49); Albumin, Serum 4.6 gm/dL (3.5-5.0); Albumin/Globulin Ratio 1.8 (1.2-2.2); Alkaline Phosphatase 123 U/L (46-116); Anion Gap 10 (7-16); Aspartate Amino Transferase 15 U/L (0-34); BUN/Creatinine Ratio 16 Ratio (12-20); Bilirubin,Total 0.5 mg/dL (0.3-1.2); Blood Urea Nitrogen 13 mg/dL (9-23); Calcium 9.4 mg/dL (8.3-10.6); Calcium (Corrected) 9.4 mg/dL (8.5-10.1); Carbon Dioxide 24.9 mMol/L (20.0-31.0); Chloride 106 mMol/L (98-107); Creatinine (Component) 0.8 mg/dL (0.6-1.3); Estimated Creatinine Clearance 123.7 mL/min (>60); Globulin 2.5 gm/dL (2.3-3.5); Glucose 101 mg/dL (74-106); Osmolality,Calculated 281 (275-295); Potassium 4.4 mMol/L (3.4-5.1); Sodium 141 mMol/L (136-145); Total Protein 7.1 gm/dL (5.7-8.2); eGFR > 60 See Note
[2025-06-26] VITALS (8 sets, daily range): BP systolic 113–175; BP diastolic 73–96; PULSE 74–102; RESP 13–20; TEMP 36.6–37.1; O2SAT 95–98; BMI 39.4
[2025-06-26] MEDS: RINGERS LACTATED 1000 ML 1,000 ML 20 ML IV (07:08)
--- NOTE | 2025-06-26 09:19 | SUR.PHASEI ---
0919 patient arrived to recovery sleeping comfortably in [facility], able to arouse with verbal prompting, then drifts back to sleep, on oxygen 4L via nasal cannula, brething unlabored, vital signs stable, denies pain and nausea, dressing intact to abdomen; dermabond, no bleeding noted, report received from Ramon VILLATORO and Dr. Lopez
--- NOTE | 2025-06-26 09:19 | PD.SUROPNT ---
Date of Procedure 06/26/25 Pre Op Diagnosis Symptomatic cholelithiasis Post Op Diagnosis Cholelithiasis with cholecystitis Procedure Laparoscopic cholecystectomy Findings Moderately distended gallbladder with gallstones and chronic cholecystitis Procedure Description Patient was brought into the operating room in supine position. After administration of general endotracheal anesthesia abdomen was prepped and draped in standard surgical manner. A Veress needle was inserted through the umbilicus and pneumoperitoneum was obtained up to 15 mmHg. The Veress needle was then removed, a 5 mm infraumbilical incision was made and the 5mm trocar was inserted. Laparoscopic camera was placed. Under direct visualization a laparoscopic camera a 10 mm trocar was placed in subxiphoid and two 5 mm trocars placed in right upper quadrant. The gallbladder was identified and was noted to be moderately distended with gallstones and chronic cholecystitis. It was retracted cephalad and laterally. Dissection started near the infundibulum of gallbladder where cystic duct and gallbladder junction clearly identified. The cystic duct was circumferentially dissected off the peritoneum and surrounding inflammatory tissue. The critical view of safety was clearly demonstrated. Cystic duct was then divided between 2 endoclips proximally and one distally. The cystic artery was similarly dissected and divided. The gallbladder was then from the liver bed using electrocautery. The gallbladder was then placed inside an Endo Catch and removed from the abdomen utilizing subxiphoid trocar site. The area was copiously and thoroughly washed and irrigated, all the fluid was suctioned and the suction fluid returned clear. Hemostasis achieved using electrocautery. Endoclips noted be in place and intact without any bleeding or any leakage. Hemostasis was adequate and satisfactory. The subxiphoid trocar sites fascial defect was closed with 0 Vicryl using Endo Closure device. Instruments and trocars removed, pneumoperitoneum was evacuated and the incisions closed with 4-0 Monocryl in subcuticular fashion. Instrument needle and sponge counts were all reported to be correct X2. Patient tolerated the procedure well, was extubated, breathing spontaneously and without difficulty and was transferred to postanesthesia care in stable condition. Anesthesia GETA and local Pathology / specimen Other (Gallbladder and contents) Estimated Blood Loss 10 Condition Stable Disposition PACU Surgeon Ez Cifuentes MD Surgical Staff Operation Date: 06/26/25 08:30 Case Staff Anesthesiologist: Miquel Lopez RNdiversified crops farmworker: Yakelin Low
[2025-06-26] MEDS: ONDANSETRON INJ 2 MG/ML INJ 2 ML 4 MG IVP (09:46)
--- NOTE | 2025-06-26 10:28 | SUR.PHASEII ---
1028 patient meets discharge criteria from recovery, awake and alert, breathing unlabored, vital signs stable, denies pain, dressing intact; no bleeding noted, drinking 7up; denies nausea, assisted with dressing into her clothing by her , discharge instructions given to patient and patients with the assistance of the telephone educational sign language interpreter [facility] ID#[id number], signed discharge instructions. Patient given all her belongings prior to discharge, transported via wheelchair and left in a private vehicle.
--- NOTE | 2025-06-27 15:46 | PD.ANESPROG ---
Documentation for date of: 06/27/25 POST ANESTHESIA NOTE: Patient had GETA for lap cholecystectomy yesterday. I just called her number for follow up but no answer. Miquel Lopez MD Anesthesia Progress Note Progress Note Most recent Vital Signs: Last Vital Signs Temp 98.0 F 06/26/25 09:49 Pulse 92 06/26/25 10:19 Resp 14 06/26/25 10:19 BP 148/88 H 06/26/25 10:19 Pulse Ox 95 06/26/25 10:19 O2 Flow Rate 2 06/26/25 09:34
== END 2025-06-26 10:28 | disposition home or self-care (01) ==
PROVIDERS: PCP Family Medicine; Referring Provider Surgery; Visit Provider Surgery
PROC: 0FT44ZZ Resection of Gallbladder, Percutaneous Endoscopic Approach (ICD-10-PCS; CPT 47562; principal; 2025-06-26 08:30)
DX: K80.10 Calculus of gallbladder with chronic cholecystitis without obstruction (principal)
CPT/HCPCS: 47562; 36415; 80053; 84703; 85025; A4217; A4649; J0131; J0694; J1100; J2371; J2405; J2704; J3010; J3490; J7120; A9270; J1596